=== PATIENT | male | born 1940 | race Hispanic/Latino ===

== ENCOUNTER 2017-03-16 06:22 | Inpatient (IN) | payer MEDICARE, BC ==
[2017-03-16] MEDS ORDERED: Iodixanol 320 MG/ML 200 ML BOTTLE IV ONE (06:43)
[2017-03-16] MEDS ORDERED: Iodixanol 320 MG/ML 100 ML BOTTLE IV ONE (06:43)
[2017-03-16] MEDS ORDERED: Lidocaine 2% Inj (20ml) ONE (06:43)
[2017-03-16] MEDS ORDERED: Nitroglycerin 50mg in D5W 50 MG/250 ML BOTTLE IV ONE (06:43)
[2017-03-16 07:02] LABS: BASO # 0.06 K/mm3 (0.0-2.0); BASO % 0.9 % (0.0-3.0); EOS # 0.2 (0.0-0.7); EOS % 3.5 % (1.5-5.0); GRAN # 3.88 (1.4-6.5); LYMPH # 1.7 (1.2-3.4); LYMPH % 26.4 % (22.0-35.0); MEAN CELL VOLUME 90.3 fl (80.0-105.0); MEAN CORPUSCULAR HEMOGLOBIN 30.8 pg (25.0-35.0); MONO # 0.5 (0.1-0.6); MONO % 8.2 % (1.0-6.0); RED CELL DISTRIBUTION WIDTH 13.2 % (11.5-14.5); WHITE BLOOD COUNT 6.4 10^3/ul (4.5-11.0)
[2017-03-16] MEDS ORDERED: Midazolam 2 MG/2 ML VIAL ONE ×3 (07:07→09:06)
[2017-03-16 07:12] LABS: BLOOD UREA NITROGEN 24 mg/dL (7-21); CALCIUM 9.6 mg/dL (8.4-10.5); CARBON DIOXIDE 26 mmol/L (21-33); CHLORIDE 103 mmol/L (98-107); GFR AFRICAN-AMERICAN > 60; GLUCOSE,RANDOM 162 mg/dL (70-110); POTASSIUM 4.7 mmol/L (3.6-5.0); SODIUM 142 mmol/L (132-148)
[2017-03-16 07:41] LABS: INR 0.99 (0.93-1.08); PARTIAL THROMBOPLASTIN TIME 26.1 Seconds (23.7-30.8)
--- NOTE | 2017-03-16 11:49 | VASCULAR ---
PROCEDURE: 1. Abdominal aortogram and bilateral lower extremity runoff with left selective views. 2. Left SFA silver Hawk atherectomy and drug-eluting balloon angioplasty HISTORY: Severe peripheral vascular disease. Diabetes. Ex-smoker. Previous right femoral-popliteal bypass. Previous left SFA angioplasty and stent placement. Recurrent short distance claudication. Left SFA occlusion. PHYSICIAN(S): Neptali Sibley M.D. TECHNIQUE: The relative risks and indications of the procedure were explained to the patient and consent obtained. The patient was hydrated prior to the procedure and the appropriate labs drawn. The patient was placed supine on the arteriogram table and the right groin prepped and draped in the usual sterile fashion. Conscious sedation and monitoring were provided throughout the procedure by a nurse. Via a right common femoral artery approach, a 5 Bulgarian sheath was placed in the right groin. Through the sheath and over a guidewire, a 5 Bulgarian flush catheter was placed in the abdominal aorta at the level of the renal arteries and a PA DSA abdominal aortogram performed. The catheter was pulled down to the aortic bifurcation and bilateral oblique DSA pelvic arteriograms performed. Overlapping bilateral lower extremity DSA arteriograms were obtained from the inguinal ligaments to the ankles. A 0.035 angled Glidewire was advanced over the bifurcation and placed in the mid left SFA. A 7 Bulgarian 65 cm destination sheath was placed in the proximal left SFA. Heparin 5000 units IV and nitroglycerin in 250 mcg aliquots were given. The occluded stent in the mid left SFA was crossed rather easily with a 5 Bulgarian catheter and angled Glidewire. Exchange was made for a 0.014 support guidewire. Silver Hawk atherectomy of the mid left SFA and occluded stent was performed with a Hawk 1 catheter approximately 8 passes were performed. Antegrade flow was re-established with a suboptimal result. The mid left SFA was then dilated with a 6 mm by 15 cm drug-eluting balloon. An excellent angiographic result was obtained. No stent was required. Completion angiograms were performed. Sheath was removed hemostasis obtained. The patient tolerated the procedure well FINDINGS: There are single renal arteries bilaterally which are widely patent and normal in appearance. The nephrograms are symmetric in appearance. The infrarenal abdominal aorta is smoothly calcified and widely patent. The aortic bifurcation is widely patent. The common iliac arteries are calcified but patent. The right internal iliac artery is occluded. The left internal iliac artery is patent. Right lower extremity: The right common femoral artery is patent. The right profunda femoral artery is diseased but patent.. The right superficial femoral artery is chronically occluded.. There is a right femoral - above knee popliteal vein bypass. There is a severe 2-3 cm stenosis of the proximal anastomosis. This previously underwent angioplasty. The remainder of the graft is patent. The Distal anastomosis is patent. The right popliteal artery is patent and continuous. There is 2 vessel tibial runoff via the right anterior tibial and peroneal arteries. The right posterior tibial artery is occluded proximally Left lower extremity: Left common femoral artery is patent. The left profunda femoral artery is hypertrophied. The left superficial femoral artery demonstrates an 8 cm occlusion of its mid segment with a self expanding stent. The left popliteal artery is patent. There is 2 vessel tibial runoff on the left via the anterior tibial and peroneal arteries. IMPRESSION: 1.8 cm occlusion of the mid left SFA with a self expanding stent. 2. Successful recanalization in the mid left SFA with silver Hawk atherectomy and drug-eluting balloon angioplasty. 3. Severe stenosis of the proximal anastomosis of the patient's right femoral-popliteal vein bypass 4. Mild bilateral tibial occlusive disease.
[2017-03-16] MEDS ORDERED: Morphine 2 mg/ml ISec ONE (14:07)
[2017-03-16] MEDS ORDERED: Sodium Chloride 0.9% 500 ML IV STA (14:26)
[2017-03-16 14:44] LABS: MEAN CELL VOLUME 90.7 fl (80.0-105.0); MEAN CORPUSCULAR HEMOGLOBIN 30.3 pg (25.0-35.0); MEAN CORPUSCULAR HGB CONC 33.4 g/dl (31.0-37.0); MEAN PLATELET VOLUME 11.4 fl (7.0-11.0); RED CELL DISTRIBUTION WIDTH 13.3 % (11.5-14.5); WHITE BLOOD COUNT 8.3 10^3/ul (4.5-11.0)
[2017-03-16 14:55] LABS: INR 1.05 (0.93-1.08); PARTIAL THROMBOPLASTIN TIME 23.4 Seconds (23.7-30.8)
[2017-03-16 15:08] LABS: TROPONIN I < 0.01 ng/mL
--- NOTE | 2017-03-16 15:21 | PCM.RRT ---
<SADIE PELAEZ - Last Filed: 03/16/17 15:16> FOOD SUPERVISOR Nurse Assessment - Situation Date: 03/16/17 Time FOOD SUPERVISOR was called: 14:19 FOOD SUPERVISOR Responder Arrival Time: 14:24 FOOD SUPERVISOR Location:: Same Day Surgery Room Number: cubicle 10 FOOD SUPERVISOR Reason for Call: Hypotension, Looks Sicker FOOD SUPERVISOR Called By: RN - IV IV Inserted during FOOD SUPERVISOR?: Yes IV Fluids Initiated During FOOD SUPERVISOR?: 750cc ns bolus - Respiratory Oxygen Delivery Method: Nasal Cannula @L/min Oxygen Flow Rate: 2 Received Nebulizer Treatments:: No Was the Patient Ventilated with Bag/Mask 100% O2?: No Secretions Suctioned?: No Was the Patient Intubated?: No Was the Patient Placed on a Ventilator?: No - Medication Medications Administered During FOOD SUPERVISOR: none - Diagnostic Test Ordered EKG: Yes Chest X-Ray: No CT Scan: No - Stat Labs Ordered FOOD SUPERVISOR Stat Labs Ordered: CBC, BMP, PT/PTT FOOD SUPERVISOR Other Labs Ordered: type and crossmatch CPR started during FOOD SUPERVISOR?: No - Vital Signs Vital Sign: Rapid Response Vital Sign Blood Pressure 83/60 Pulse Rate 62 Respiratory Rate 16 Oxygen Saturation 99 - Finger Stick Blood Glucose Finger Stick Blood Glucose: 176 - Time FOOD SUPERVISOR Ended Time FOOD SUPERVISOR Ended: 14:45 - Vital Signs at end of FOOD SUPERVISOR Vital Signs at end of FOOD SUPERVISOR: Rapid Response End Vital Sign Blood Pressure 123/76 Pulse Rate 70 Respiratory Rate 20 O2 Sat by Pulse Oximetry 95 - Recommendations 5) FOOD SUPERVISOR Level of Care Recommendations: Transfer to ICU Notifications: Attending Physician, Family or Designated Caregiver I.Reason for FOOD SUPERVISOR - A) Acute Change in Patient: Subjective: Pt is a 76 yo male with pmhx with CAD with stents, PVD s/p bypass and stents of b/l extremities whom presented to [facility] angiogram of . Post procedure pt complained of RLQ abdominal pain. Was given 2 mg of morphine apon examination of the nurses pt was noted to have a lump in the RLQ, suspicious for internal bleed. Pressure was held and FOOD SUPERVISOR was called due to hypotension. On arrival systolic BP was in the 80s. Pt was given 500 cc NS bolus and right lower inguinal pressure was applied. Dr. Neptali Sibley arrived at bedside, recommended pt be transferred to ICU for monitoring. CBC, type and cross 4 units, PT/PTT were all sent. BP improved with systolic BP in the 100s. Pt's primary care doctor was contacted and agreed with admission to ICU. Pt's daughter was also contacted. Dr. Raymond Roy and Dr. Selin Amador were at bedside. - Neurological Status (Select all that apply): Alert, Responsive, Oriented, Verbal, Follows Commands - Respiratory Oxygen Delivery Method: Room Air Oxygen Flow Rate: 0 - Constitutional Appears: No Acute Distress, Chronically Ill - Head Head Exam: ATRAUMATIC, NORMAL INSPECTION, NORMOCEPHALIC - Eyes Eye Exam: EOMI, Normal appearance, PERRL. absent: Scleral icterus - Respiratory Exam Respiratory Exam: Clear to Ausculation Bilateral, NORMAL BREATHING PATTERN. absent: Decreased Breath Sounds, Rales, Rhonchi, Wheezes, Respiratory Distress, Stridor - Cardiovascular Exam Cardiovascular Exam: Bradycardia, REGULAR RHYTHM, RRR, +S1, +S2. absent: JVD, Rubs, Murmur - GI/Abdominal Exam GI & Abdominal Exam: Distended, Rigid, Tenderness (RLQ), Normal Bowel Sounds, Organomegaly (RLQ, palpable liver edge). absent: Firm, Guarding - Neurological Exam Neurological Exam: Alert, Awake, Oriented x3 - Extremities Exam Extremities Exam: Normal Capillary Refill. absent: Pedal Edema Plan - Assessment of Findings&Treatment Plan 76 yo M status post angiography of LE's developed RLQ abdominal pain suspicious for intrabdominal bleed and hypotension. S/p pressure dressing by Dr. Neptali Sibley. 1. Transfer to ICU for further monitoring 2. F/u CBC, type and cross, coags, EKG, cardiac enzymes 3. As per Dr. Neptali Sibley, if pt continues to bleed will obtain CT abdomen and pelvis 4. Dr. Coto was notified and will accept pt to his service 5. Pt seen and examined and discussed with attending <Selin Amador B - Last Filed: 03/16/17 16:07> FOOD SUPERVISOR Nurse Assessment - Vital Signs Vital Sign: Rapid Response Vital Sign Blood Pressure 83/60 Pulse Rate 62 Respiratory Rate 16 Oxygen Saturation 99 - Vital Signs at end of FOOD SUPERVISOR Vital Signs at end of FOOD SUPERVISOR: Rapid Response End Vital Sign Blood Pressure 123/76 Pulse Rate 70 Respiratory Rate 20 O2 Sat by Pulse Oximetry 95 Attending/Attestation - Attestation I have personally seen and examined this patient.: Yes I have fully participated in the care of the patient.: Yes I have reviewed all pertinent clinical information, including history, physical exam and plan: Yes
[2017-03-16 16:41] LABS: BASO # 0.03 K/mm3 (0.0-2.0); BASO % 0.3 % (0.0-3.0); EOS # 0.1 (0.0-0.7); EOS % 0.7 % (1.5-5.0); GRAN # 7.93 (1.4-6.5); GRAN % 84.7 % (50.0-68.0); HEMATOCRIT 33.1 % (42.0-52.0); LYMPH # 0.7 (1.2-3.4); LYMPH % 7.7 % (22.0-35.0); MEAN CELL VOLUME 90.2 fl (80.0-105.0); MEAN CORPUSCULAR HEMOGLOBIN 30.2 pg (25.0-35.0); MEAN CORPUSCULAR HGB CONC 33.5 g/dl (31.0-37.0); MEAN PLATELET VOLUME 11.6 fl (7.0-11.0); MONO # 0.6 (0.1-0.6); MONO % 6.6 % (1.0-6.0); RED CELL DISTRIBUTION WIDTH 13.2 % (11.5-14.5); WHITE BLOOD COUNT 9.4 10^3/ul (4.5-11.0)
--- NOTE | 2017-03-16 16:46 | CP.PCM.CON ---
<Schuyler Dong - Last Filed: 03/16/17 16:26> History of Present Illness - History of Present Illness History of Present Illness: ICU Consult Note for Dr. Haskins CC: Rapid response post R-leg angiogram, possible Retroperitoneal bleed HPI: This is a 76 yo M with PMH of CAD s/p stenting x3, HTN, HLD, NIDDM, Gout, BPH, RLE Fem-pop bypass with SFA stent, and PVD with exercise-induced claudication who presents s/p Rapid Response. Patient was in same day surgery, s/p R-leg angiogram, resting comfortably. Approximately 6 hours post procedure , he developed some RLQ abd pain, for which he was given morphine, but obtained no relief. On re-examination by same-day surgery staff, patient was ill- appearing, in moderate distress from pain, and had a palpable mass at the RLQ. Blood pressure was obtained at that time, and systolic was reported to be in the 70's, so a rapid response was called (please see VEHICLE COST ENGINEER note for additional details). Pressures improved to 90's-110's after 500cc bolus with pressure bag , and the patient remained awake, alert, and oriented, so pressure bandaging was applied, and patient was transferred to ICU as per IR. At time of exam, patient reports only general discomfort at region of R-groin 2/2 pressure bandage, but denies any syncope, near-syncope, room spinning, chest pain, shortness of breath, nausea/emesis, focal weakness, fevers/chills, or acute changes in vision. Admits to intermittent tingling in bilateral feet, longstanding diabetic neuropathy as per patient and family at bedside, and intermittent dizziness/near-syncopal at home (3 episodes total) when moving from sitting to standing. Admits to a measured hypotensive episode at home (70' s-80's systolic at home) 3 days prior. All other ROS negative in 12-point system review. PMH: as above PSH: RLE Fem-pop bypass with SFA stenting, Cardiac stenting 2014 SHx: former tobacco user (cigarettes, 2 ppd > 20 yrs, quit > 30 yrs prior), admits social EtOH, denies illicits/IVDA FHx: NC (Father) PMD: Dr. Coto Review of Systems - Review of Systems All systems: reviewed and no additional remarkable complaints except (as per HPI ) Past Patient History - Infectious Disease Hx of Infectious Diseases: None - Past Social History Smoking Status: Former Smoker - CARDIAC Hx Pacemaker: No - PULMONARY Hx Respiratory Disorders: No - NEUROLOGICAL Hx Paralysis: No - HEENT Hx HEENT Problems: (WEARS GLASSES) - RENAL Hx Chronic Kidney Disease: No - ENDOCRINE/METABOLIC Hx Endocrine Disorders: Yes Hx Diabetes Mellitus Type 1: Yes Hx Diabetes Mellitus Type 2: Yes (NIDDM) - HEMATOLOGICAL/ONCOLOGICAL Hx Blood Transfusions: No - INTEGUMENTARY Hx Dermatological Problems: No - MUSCULOSKELETAL/RHEUMATOLOGICAL Hx Musculoskeletal Disorders: Yes - GASTROINTESTINAL Hx Gastrointestinal Disorders: No - GENITOURINARY/GYNECOLOGICAL Hx Genitourinary Disorders: Yes (frequency) Hx Prostate Problems: Yes (ENLARGED PROSTATE) - PSYCHIATRIC Hx Emotional Abuse: No Hx Physical Abuse: No Hx Substance Use: No - SURGICAL HISTORY Hx Surgeries: Yes - ANESTHESIA Hx Anesthesia Reactions: No Meds Allergies/Adverse Reactions: Allergies Allergy/AdvReac Type Severity Reaction Status Date / Time No Known Allergies Allergy Verified 03/06/15 10:52 - Medications Medications: Current Medications Acetaminophen (Tylenol 325mg Tab) 650 mg PO Q4H PRN PRN Reason: Pain, Mild (1-3) Sodium Chloride (Sodium Chloride 0.45%) 1,000 mls @ 80 mls/hr IV .[id number] CAROLYN Ondansetron HCl (Zofran Inj) 4 mg IVP ONCE PRN PRN Reason: Nausea/Vomiting Oxycodone/Acetaminophen (Percocet 5/325 Mg Tab) 1 tab PO Q4H PRN PRN Reason: Pain, moderate (4-7) Stop: 03/19/17 09:56 Physical Exam - Constitutional Appears: Well, Non-toxic, No Acute Distress (at time of exam in ICU), In Acute Distress (at time of rapid) - Head Exam Head Exam: ATRAUMATIC, NORMAL INSPECTION, NORMOCEPHALIC - Eye Exam Eye Exam: EOMI, Normal appearance, PERRL. absent: Conjunctival injection, Scleral icterus Pupil Exam: NORMAL ACCOMODATION, PERRL. absent: Fixed, Irregular, Unequal - ENT Exam ENT Exam: Mucous Membranes Moist, Normal Exam - Neck Exam Neck exam: Positive for: Full Rom - Respiratory Exam Respiratory Exam: Decreased Breath Sounds (mildly decreased breath sounds in all benítez), Clear to Auscultation Bilateral, NORMAL BREATHING PATTERN. absent : Accessory Muscle Use, Chest Wall Tenderness, Prolonged Expiratory Phase, Rales , Rhonchi, Wheezes - Cardiovascular Exam Cardiovascular Exam: REGULAR RHYTHM, RRR, +S1, +S2. absent: Bradycardia, Tachycardia, Irregular Rhythm, JVD, +S4 - GI/Abdominal Exam GI & Abdominal Exam: Normal Bowel Sounds, Soft. absent: Diminished Bowel Sounds , Distended, Firm, Tenderness - Extremities Exam Extremities exam: Positive for: calf tenderness (mild calf tenderness superior to R heel), pedal pulses present (weakly palpable distal pulses, confirmed with Duplex prior to placement of RLE pressure bandage). Negative for: joint swelling, pedal edema Additional comments: R-femoral canulation site at R groin, pressure bandaging in place, no actively oozing at time of Rapid prior to pressure bandage placement - Neurological Exam Neurological exam: Alert, CN II-XII Intact, Oriented x3 - Psychiatric Exam Psychiatric exam: Normal Affect, Normal Mood - Skin Skin Exam: Dry, Intact (except as documented in Extremities exam), Normal Color , Warm Results - Vital Signs Recent Vital Signs: Last Vital Signs Temp 97 F L 03/16/17 14:00 Pulse 58 L 03/16/17 14:00 Resp 20 03/16/17 14:00 BP 119/81 03/16/17 14:00 Pulse Ox 99 03/16/17 14:00 - Labs Result Diagrams: 03/16/17 14:30 03/16/17 06:56 Labs: Laboratory Results - last 24 hr 03/16/17 03/16/17 03/16/17 06:56 06:56 06:56 WBC 6.4 D RBC 4.65 Hgb 14.3 Hct 42.0 MCV 90.3 MCH 30.8 MCHC 34.0 RDW 13.2 Plt Count 136 MPV 12.0 H Gran % 61.0 Lymph % (Auto) 26.4 [place] % (Auto) 8.2 H Eos % (Auto) 3.5 Baso % (Auto) 0.9 Gran # 3.88 Lymph # 1.7 Morehouse # 0.5 Eos # 0.2 Baso # 0.06 PT 10.7 INR 0.99 APTT 26.1 Sodium 142 Potassium 4.7 Chloride 103 Carbon Dioxide 26 Anion Gap 18 BUN 24 H Creatinine 1.2 Est GFR ( Amer) > 60 Est GFR (Non-Af Amer) 59 POC Glucose (mg/dL) Random Glucose 162 H Calcium 9.6 Lactate Dehydrogenase Total Creatine Kinase Troponin I Blood Type Antibody Screen Crossmatch BBK History Checked 03/16/17 03/16/17 03/16/17 14:23 14:30 14:30 WBC 8.3 D RBC 3.86 Hgb 11.7 L D Hct 35.0 L MCV 90.7 MCH 30.3 MCHC 33.4 RDW 13.3 Plt Count 136 MPV 11.4 H Gran % Lymph % (Auto) [place] % (Auto) Eos % (Auto) Baso % (Auto) Gran # Lymph # [place] # Eos # Baso # PT INR APTT Sodium Potassium Chloride Carbon Dioxide Anion Gap BUN Creatinine Est GFR ( Amer) Est GFR (Non-Af Amer) POC Glucose (mg/dL) 176 H Random Glucose Calcium Lactate Dehydrogenase 284 L Total Creatine Kinase 88 Troponin I < 0.01 Blood Type Antibody Screen Crossmatch BBK History Checked 03/16/17 03/16/17 14:30 14:30 WBC RBC Hgb Hct MCV MCH MCHC RDW Plt Count MPV Gran % Lymph % (Auto) [place] % (Auto) Eos % (Auto) Baso % (Auto) Gran # Lymph # [place] # Eos # Baso # PT 11.3 INR 1.05 APTT 23.4 L Sodium Potassium Chloride Carbon Dioxide Anion Gap BUN Creatinine Est GFR ( Amer) Est GFR (Non-Af Amer) POC Glucose (mg/dL) Random Glucose Calcium Lactate Dehydrogenase Total Creatine Kinase Troponin I Blood Type O NEGATIVE Antibody Screen Negative Crossmatch See Detail BBK History Checked Patient has bt Assessment & Plan - Assessment and Plan (Free Text) Assessment: his is a 76 yo M with PMH of CAD s/p stenting x3, HTN, HLD, NIDDM, Gout, BPH, RLE Fem-pop bypass with SFA stent, and PVD with exercise-induced claudication who presents s/p Rapid Response with concern for post-angiogram retro- peritoneal bleed. He was admitted to the ICU for close monitoring. Plan: Neuro: -awake and alert, oriented -maintain normothermia Pulm: -CTAB, satting well on 2L NC -maintain SaO2 > 92% Cardio: -currently hemodynamically stable, BP 110's-120s on bedside monitor at time of exam -70's-80s SBP on bedside monitor at time of Rapid, resolved, continue to monitor -Hypotensive episode 2/2 retroperitoneal bleed vs vasovagal -1/2 NS at 80cc/hr -Hgb post procedure 11.7 (14.3 pre-procedure), CBC q4 to assess for acute drops in Hgb -If becomes HD unstable or demonstrates acute decreases in Hgb, can consider CT angio to assess for bleed -Trop x1 negative -Peripheral pulses intact, confirmed with duplex, continue pulse checks q4 -Hold home ASA/Plaivx and Antihypertensives overnight, reassess in AM GI: -Consistent carb diet -Avoid Protonix ppx for now due to concern for bleed, can start on Protonix tomorrow if no bleeding from canulation site Renal: -Cr 1.2, BUN 24 on admission labs, however NPO pre-procedure so may be mildly dehydrated -Maintain Euvolemia and Euglycemia (BG 140-180) -Avoid nephrotoxic drugs as feasible -Monitor and replete electrolytes as needed Heme: -Coags obtained, INR 1.05, will recheck on AM -Avoid AC in setting of possible bleed -Hgb 11.7, 14.3 pre-procedure but NPO so likely hemoconcentrated, less likely decrease from acute ID: -WBC 8.3, afebrile -no indication for antibiotics at this time Endo: -hold home oral hypoglycemics in favor of sliding scale, Fingersticks ACHS Dispo: ICU s/p rapid for hypotensive episode post-procedure, possible retroperitoneal hemorrhage FEN: Consistent carb, 1/s NS 80cc/hr Access: Peripheral IV Consults: ICU Ppx: Avoid AC in setting of possible bleed, avoid SCD due to LE bleed, avoid Protonix due to post-angiogram bleed Code Status: Full Patient seen, examined, and reviewed with attending, Dr. Haskins. <Juan José Haskins - Last Filed: 03/16/17 17:50> Meds - Medications Medications: Current Medications Acetaminophen (Tylenol 325mg Tab) 650 mg PO Q4H PRN PRN Reason: Pain, Mild (1-3) Allopurinol (Zyloprim) 300 mg PO DAILY CAROLYN Atorvastatin Calcium (Lipitor) 10 mg PO DIN CAROLYN Finasteride (Proscar) 5 mg PO DAILY [facility] Sodium Chloride (Sodium Chloride 0.45%) 1,000 mls @ 80 mls/hr IV .[id number] [facility] Insulin Human Lispro (Humalog Low) 0 units SC ACHS CAROLYN PRN Reason: Protocol Ondansetron HCl (Zofran Inj) 4 mg IVP ONCE PRN PRN Reason: Nausea/Vomiting Oxycodone/Acetaminophen (Percocet 5/325 Mg Tab) 1 tab PO Q4H PRN PRN Reason: Pain, moderate (4-7) Stop: 03/19/17 09:56 Tamsulosin HCl (Flomax) 0.4 mg PO DAILY [facility] Results - Vital Signs Recent Vital Signs: Last Vital Signs Temp 97 F L 03/16/17 14:00 Pulse 58 L 03/16/17 14:00 Resp 20 03/16/17 14:00 BP 119/81 03/16/17 14:00 Pulse Ox 99 03/16/17 14:00 - Labs Result Diagrams: 03/16/17 16:37 03/16/17 06:56 Labs: Laboratory Results - last 24 hr 03/16/17 03/16/17 03/16/17 06:56 06:56 06:56 WBC 6.4 D RBC 4.65 Hgb 14.3 Hct 42.0 MCV 90.3 MCH 30.8 MCHC 34.0 RDW 13.2 Plt Count 136 MPV 12.0 H Gran % 61.0 Lymph % (Auto) 26.4 [place] % (Auto) 8.2 H Eos % (Auto) 3.5 Baso % (Auto) 0.9 Gran # 3.88 Lymph # 1.7 [place] # 0.5 Eos # 0.2 Baso # 0.06 PT 10.7 INR 0.99 APTT 26.1 Sodium 142 Potassium 4.7 Chloride 103 Carbon Dioxide 26 Anion Gap 18 BUN 24 H Creatinine 1.2 Est GFR ( Amer) > 60 Est GFR (Non-Af Amer) 59 POC Glucose (mg/dL) Random Glucose 162 H Calcium 9.6 Lactate Dehydrogenase Total Creatine Kinase Troponin I Blood Type Antibody Screen Crossmatch BBK History Checked 03/16/17 03/16/17 03/16/17 14:23 14:30 14:30 WBC 8.3 D RBC 3.86 Hgb 11.7 L D Hct 35.0 L MCV 90.7 MCH 30.3 MCHC 33.4 RDW 13.3 Plt Count 136 MPV 11.4 H Gran % Lymph % (Auto) [place] % (Auto) Eos % (Auto) Baso % (Auto) Gran # Lymph # [place] # Eos # Baso # PT INR APTT Sodium Potassium Chloride Carbon Dioxide Anion Gap BUN Creatinine Est GFR ( Amer) Est GFR (Non-Af Amer) POC Glucose (mg/dL) 176 H Random Glucose Calcium Lactate Dehydrogenase 284 L Total Creatine Kinase 88 Troponin I < 0.01 Blood Type Antibody Screen Crossmatch BBK History Checked 03/16/17 03/16/17 03/16/17 14:30 14:30 16:37 WBC 9.4 RBC 3.67 Hgb 11.1 L Hct 33.1 L MCV 90.2 MCH 30.2 MCHC 33.5 RDW 13.2 Plt Count 112 L MPV 11.6 H Gran % 84.7 H Lymph % (Auto) 7.7 L [place] % (Auto) 6.6 H Eos % (Auto) 0.7 L Baso % (Auto) 0.3 Gran # 7.93 H Lymph # 0.7 L [place] # 0.6 Eos # 0.1 Baso # 0.03 PT 11.3 INR 1.05 APTT 23.4 L Sodium Potassium Chloride Carbon Dioxide Anion Gap BUN Creatinine Est GFR ( Amer) Est GFR (Non-Af Amer) POC Glucose (mg/dL) Random Glucose Calcium Lactate Dehydrogenase Total Creatine Kinase Troponin I Blood Type O NEGATIVE Antibody Screen Negative Crossmatch See Detail BBK History Checked Patient has bt Attending/Attestation - Attestation I have personally seen and examined this patient.: Yes I have fully participated in the care of the patient.: Yes I have reviewed all pertinent clinical information: Yes Notes (Text): 03/16/17 17:46 76 yo male with PVD, CAD, s/p Left (not right as in resident note) angioplasty with stent in SFA, who presented to ICU after brisk bleeding in the right groin area where needle insertion for the procedure was made. short lived and transient hypotension resolved with small IVF bolus. Patient hemodynamically and respiratory rivero stable at present time. Easily dopplerable pulse on L.DPA and duller but still dopplerable pulse on R. DPA. Both feet warm, without paresthesia, pain or neurodeficit. Will continue vascular and neuro checks q2-4 hrs, serial Hb, IVF, holding antiplatelets for today. Pressure gauze in the right groin. Bed rest for today.
[2017-03-16] MEDS: Oxycodone/Acetaminophen 5/325 mg Tab PO PRN (19:27)
[2017-03-16 20:39] LABS: BASO # 0.02 K/mm3 (0.0-2.0); BASO % 0.2 % (0.0-3.0); EOS # 0.1 (0.0-0.7); EOS % 0.8 % (1.5-5.0); GRAN # 7.14 (1.4-6.5); GRAN % 81.6 % (50.0-68.0); HEMATOCRIT 32.2 % (42.0-52.0); LYMPH # 1.1 (1.2-3.4); MEAN CELL VOLUME 90.2 fl (80.0-105.0); MEAN CORPUSCULAR HEMOGLOBIN 30.8 pg (25.0-35.0); MEAN CORPUSCULAR HGB CONC 34.2 g/dl (31.0-37.0); MEAN PLATELET VOLUME 11.4 fl (7.0-11.0); MONO # 0.5 (0.1-0.6); MONO % 5.4 % (1.0-6.0); RED CELL DISTRIBUTION WIDTH 13.1 % (11.5-14.5); WHITE BLOOD COUNT 8.8 10^3/ul (4.5-11.0)
[2017-03-16] MEDS: Insulin Lispro (humaLOG) LOW Coverage SC SCH (22:34)
[2017-03-16] MEDS: Sodium Chloride 0.45% 1,000 ML IV SCH (22:40)
[2017-03-17 00:57] LABS: BASO # 0.05 K/mm3 (0.0-2.0); BASO % 0.7 % (0.0-3.0); EOS # 0.2 (0.0-0.7); EOS % 2.4 % (1.5-5.0); GRAN # 4.99 (1.4-6.5); GRAN % 69.7 % (50.0-68.0); HEMATOCRIT 31.4 % (42.0-52.0); LYMPH # 1.3 (1.2-3.4); LYMPH % 18.3 % (22.0-35.0); MEAN CELL VOLUME 90.8 fl (80.0-105.0); MEAN CORPUSCULAR HEMOGLOBIN 30.6 pg (25.0-35.0); MEAN CORPUSCULAR HGB CONC 33.8 g/dl (31.0-37.0); MEAN PLATELET VOLUME 11.8 fl (7.0-11.0); MONO # 0.6 (0.1-0.6); MONO % 8.9 % (1.0-6.0); RED CELL DISTRIBUTION WIDTH 13.3 % (11.5-14.5); WHITE BLOOD COUNT 7.2 10^3/ul (4.5-11.0)
[2017-03-17 05:57] LABS: BASO # 0.02 K/mm3 (0.0-2.0); BASO % 0.3 % (0.0-3.0); EOS # 0.2 (0.0-0.7); EOS % 2.3 % (1.5-5.0); GRAN # 5.04 (1.4-6.5); GRAN % 71.8 % (50.0-68.0); LYMPH # 1.1 (1.2-3.4); LYMPH % 15.2 % (22.0-35.0); MEAN CELL VOLUME 91.2 fl (80.0-105.0); MEAN CORPUSCULAR HEMOGLOBIN 30.8 pg (25.0-35.0); MEAN CORPUSCULAR HGB CONC 33.8 g/dl (31.0-37.0); MONO # 0.7 (0.1-0.6); MONO % 10.4 % (1.0-6.0); RED CELL DISTRIBUTION WIDTH 13.3 % (11.5-14.5)
[2017-03-17 06:01] LABS: INR 1.02 (0.93-1.08); PARTIAL THROMBOPLASTIN TIME 24.7 Seconds (23.7-30.8)
[2017-03-17 06:33] LABS: ALB/GLOB RATIO 1.4 (1.1-1.8); ALKALINE PHOSPHATASE 36 U/L (38-126); ALT/SGPT 31 U/L (7-56); AST/SGOT 20 U/L (17-59); BILIRUBIN,TOTAL 0.7 mg/dL (0.2-1.3); BLOOD UREA NITROGEN 18 mg/dL (7-21); CALCIUM 8.3 mg/dL (8.4-10.5); CARBON DIOXIDE 26 mmol/L (21-33); CHLORIDE 105 mmol/L (98-107); GFR AFRICAN-AMERICAN > 60; GLUCOSE,RANDOM 149 mg/dL (70-110); MAGNESIUM 1.4 mg/dL (1.7-2.2); PHOSPHOROUS 3.2 mg/dL (2.5-4.5); POTASSIUM 4.3 mmol/L (3.6-5.0); SODIUM 138 mmol/L (132-148); TOTAL PROTEIN 5.9 g/dL (5.8-8.3)
--- NOTE | 2017-03-17 07:12 | CT ---
EXAM: CT Abdomen and Pelvis Without Intravenous Contrast EXAM DATE/TIME: 03/16/2017 2:26 PM CLINICAL HISTORY: 76 years old, male; Signs and symptoms; Other: Acute bleed TECHNIQUE: Axial computed tomography images of the abdomen and pelvis without intravenous contrast. All CT scans at this facility use one or more dose reduction techniques, viz.: automated exposure control; ma/kV adjustment per patient size (including targeted exams where dose is matched to indication; i.e. head); or iterative reconstruction technique. Coronal and sagittal reformatted images were created and reviewed. COMPARISON: No relevant prior studies available. FINDINGS: LOWER THORAX: No infiltrate seen in the lung bases. ABDOMEN: LIVER: No acute abnormality of the liver identified. GALLBLADDER AND BILE DUCTS: Very high density material in the gallbladder, most compatible with vicariously excreted IV contrast. No CT evidence of acute cholecystitis. PANCREAS: No CT evidence of acute pancreatitis. SPLEEN: No acute abnormality of the spleen identified. ADRENALS: No acute abnormality of the adrenal glands identified. KIDNEYS AND URETERS: Bilateral persistent nephrograms. Moderate bilateral perinephric stranding and fluid. No evidence of significant perinephric hematoma. No evidence of hydroureteronephrosis. STOMACH AND BOWEL: Extensive colonic diverticulosis, without evidence of acute diverticulitis. Otherwise, no significant abnormality of the bowel is identified. No acute abnormality of the stomach or duodenum identified. No evidence of bowel obstruction. APPENDIX: Appendix is seen, and is within normal limits in appearance. PELVIS: BLADDER: Catheter and air noted within the bladder lumen. REPRODUCTIVE: No acute abnormality of the reproductive organs is seen. ABDOMEN and PELVIS: INTRAPERITONEAL SPACE: Small amount of pelvic free fluid. No evidence of free air. RETROPERITONEAL SPACE: Acute right-sided retroperitoneal hemorrhage. A moderate to large amount of diffuse hemorrhage is seen, centered in in the right pelvic retroperitoneal space, and extending superiorly, into the right lower abdomen. The hemorrhage has a craniocaudal extent of about 20 cm, and is greatest in the right pelvis anterolaterally. There is no definite focal, measurable hematoma seen. The hemorrhage is located jennifer-laterally, posterior and lateral to the ascending colon and right kidney but not abutting these were constructed. BONES/JOINTS: No acute fractures or other acute bony abnormality noted. SOFT TISSUES: Subcutaneous hemorrhage in the right anterior pelvic wall and right groin soft tissues, diffuse in nature, with no evidence of a measurable hematoma. Small focus of soft tissue air is also seen. VASCULATURE: Atherosclerotic calcification. No evidence of periaortic hemorrhage. LYMPH NODES: No evidence of diffuse lymphadenopathy. IMPRESSION: - Acute right retroperitoneal hemorrhage. A moderate to large amount of hemorrhage is seen, greatest in the right pelvis anterolaterally, and extending superiorly into the right lower abdomen. - Bilateral persistent nephrograms, suspicious for acute tubular necrosis. Contrast nephropathy is not excluded. - Diffuse subcutaneous hemorrhage in the right anterior pelvic wall and groin soft tissues. - See above for remaining findings.
[2017-03-17] MEDS: Insulin Lispro (humaLOG) LOW Coverage SC SCH ×4 (08:04→22:00)
[2017-03-17] MEDS: Magnesium Sulfate 2 GM in Sodium Chloride 0.9% 100 ML IVPB SCH ×2 (08:41→10:45)
--- NOTE | 2017-03-17 09:50 | CP.CCUPN ---
<Schuyler Dong - Last Filed: 03/17/17 10:45> CCU Subjective - Physician Review Subjective (Free Text): 03/17/17 09:47 Patient seen and examined at bedside in the ICU. No acute events reported overnight. Repeat CBCs showed minor decline in Hgb from 11.7 (post-procedure) to 10.6 (overnight), 10.[address] abd/pelvis obtained as per primary, read as retroperitoneal hemorrhage extending from pelvis to right lower abdomen, moderate to large amount, and possible ATN. Dr. Neptali Sibley made aware, states appears to be more anterior and lateral than retroperitoneal. Recs keeping patient one more day, but if H&H is stable at 1530 recheck, can be transferred to telemetry and be allowed to ambulate out of bed. Patient reports no acute complaints, mild pain on palpation at site of bleed, otherwise no other complaints. Denies chest pain, shortness of breath, nausea, emesis, fevers/ chills, acute vision change, dizziness, room-spinning sensation, or focal weakness. Baseline bilateral foot intermittent tingling 2/2 NIDDM, no acute changes. Critical Care Time Spent (in minutes): 35 CCU Objective - Vital Signs / Intake & Output Vital Signs (Last 4 hours): Vital Signs Temp Pulse Resp BP Pulse Ox 03/17/17 08:00 64 14 104/52 L 97 03/17/17 07:50 66 21 99 03/17/17 07:45 68 17 109/56 L 99 03/17/17 07:40 65 16 98 03/17/17 07:30 63 14 112/49 L 99 03/17/17 07:20 63 16 99 03/17/17 07:15 64 17 106/57 L 98 03/17/17 07:10 65 16 98 03/17/17 07:00 98.3 F 64 14 116/61 99 03/17/17 06:50 66 15 98 03/17/17 06:45 65 15 107/55 L 99 03/17/17 06:40 67 13 100 03/17/17 06:30 66 16 114/59 L 99 03/17/17 06:20 62 17 99 03/17/17 06:15 63 15 114/59 L 99 03/17/17 06:10 65 15 98 09/27/17 06:04 64 17 119/56 L 98 03/17/17 06:01 67 29 H 03/17/17 06:00 64 Intake and Output (Last 8hrs): Intake & Output 03/16/17 03/17/17 03/17/17 22:59 06:59 14:59 Intake Total 2030 960 Output Total 600 1000 Balance 1430 -40 Intake: IV 1550 960 Right Antecubital 1550 Right Hand 960 Oral 480 0 Output: Urine 600 1000 Urethral (Molina) 600 1000 Other: # Bowel Movements 0 - Physical Exam Head: Positive for: Atraumatic, Normocephalic. Negative for: Abrasion, Laceration Pupils: Positive for: PERRL. Negative for: Sluggish, Non-Reactive Extroacular Muscles: Positive for: EOMI. Negative for: Gaze Palsy Conjunctiva: Positive for: Normal. Negative for: Injected, Icteric Mouth: Positive for: Moist Mucous Membranes, Normal Lips, Normal Tounge, Normal Teeth. Negative for: Drooling Pharnyx: Positive for: Normal Nose (External): Positive for: Atraumatic. Negative for: Abrasion, Contusion, Laceration Nose (Internal): Negative for: Epistaxis Neck: Positive for: Normal Range of Motion. Negative for: Meningeal Signs, MIDLINE TENDERNESS, JVD, Lymphadenopathy Respiratory/Chest: Positive for: Clear to Auscultation, Good Air Exchange, Decreased Breath Sounds (mildly decreased breath sounds in all benítez, unchanged from yesterday). Negative for: Respiratory Distress, Accessory Muscle Use, Wheezes, Rales, Retracting, Rhonchi, Tachypneic, Tender to Palpation Cardiovascular: Positive for: Regular Rate and Rhythm, Normal S1, S2, Peripheal Pulses Present (+2 radials bilaterally, unable to palpate dorsalis pedis pulses but clearly auscultated with bedside doppler bilaterally). Negative for: Murmurs, Irregular Rhythm, Tachycardic, Bradycardic Abdomen: Positive for: Tenderness (mild discomfort at baseline, tenderness to anterior palpation only at RLQ), Normal Bowel Sounds, Guarding (mild guarding for any palpation at RLQ). Negative for: Distention, Peritoneal Signs, Mass/ Organomegaly (no palpable mass at site of previously palpated mass in RLQ yesterday, but some guarding) Genitourinary Male: Positive for: Other (Molina in place draining clear yellow urine) Back: Negative for: CVA Tenderness Upper Extremity: Positive for: Normal Inspection, Normal ROM, NORMAL PULSES. Negative for: Cyanosis, Edema, Tenderness, Swelling, Erythema, Neurovascularly Intact, Deformity Lower Extremity: Positive for: NORMAL PULSES (unable to palpate bilateral dorsalis pedis but clearly heard brisk pulse when using bedside doppler), Other (Pressure bandage in place along R groin line, no active bleeding or oozing through bandage). Negative for: Edema, CALF TENDERNESS, Cyanosis, Normal ROM ( intentionally restricted RLE motion, but bilateral foot ROM intact and equal), Tenderness, Swelling, Erythema, Deformity, Temperature Abnormalties Neurological: Positive for: GCS=15, CN II-XII Intact, Speech Normal, Motor Func Grossly Intact (except for RLE restricted motion, as documented in Lower extremity exam), Normal Sensory Function Skin: Positive for: Warm, Dry, Normal Color. Negative for: Rashes, Diaphoretic , Erythematous, Laceration, Abscess, Abrasion Psychiatric: Positive for: Alert, Oriented x 3, Normal Insight, Normal Concentration, Normal Affect, Normal Mood. Negative for: Anxious, Agitated, Depressed Mood - Medications Active Medications: Active Medications Generic Name Dose Route Start Last Admin Trade Name Freq PRN Reason Stop Dose Admin Acetaminophen 650 mg 03/16/17 09:56 Tylenol 325mg Tab PO Q4H PRN Pain, Mild (1-3) Allopurinol 300 mg 03/16/17 17:30 03/17/17 09:12 Zyloprim PO 300 mg DAILY CAROLYN Administration Atorvastatin Calcium 10 mg 03/16/17 17:00 03/16/17 19:26 Lipitor PO 10 mg DIN CAROLYN Administration Finasteride 5 mg 03/16/17 17:30 03/17/17 09:16 Proscar PO 5 mg DAILY CAROLYN Administration Sodium Chloride 1,000 mls @ 80 mls/hr 03/16/17 10:00 03/16/17 22:40 Sodium Chloride 0.45% IV 80 mls/hr .[id number] CAROLYN Administration Magnesium Sulfate 2 gm/ Sodium 104 mls @ 102 mls/hr 03/17/17 07:45 03/17/17 08:41 Chloride IVPB 03/17/17 11:47 102 mls/hr Q3H CAROLYN Administration Insulin Human Lispro 0 units 03/16/17 22:00 03/17/17 08:04 Humalog Low SC 1 units ACHS CAROLYN Administration Protocol Ondansetron HCl 4 mg 03/16/17 09:55 Zofran Inj IVP ONCE PRN Nausea/Vomiting Oxycodone/Acetaminophen 1 tab 03/16/17 09:55 03/16/17 19:27 Percocet 5/325 Mg Tab PO 03/19/17 09:56 1 tab Q4H PRN Administration Pain, moderate (4-7) Tamsulosin HCl 0.4 mg 03/16/17 17:30 03/17/17 09:11 Flomax PO 0.4 mg DAILY CAROLYN Administration - Patient Studies Lab Studies: Lab Studies 03/17/17 03/17/17 03/17/17 Range/Units 07:45 05:30 05:30 WBC (4.5-11.0) 10^3/ul RBC (3.5-6.1) 10^6/uL Hgb (14.0-18.0) g/dL Hct (42.0-52.0) % MCV (80.0-105.0) fl MCH (25.0-35.0) pg MCHC (31.0-37.0) g/dl RDW (11.5-14.5) % Plt Count (120.0-450.0) 10^3/uL MPV (7.0-11.0) fl Gran % (50.0-68.0) % Lymph % (Auto) (22.0-35.0) % [place] % (Auto) (1.0-6.0) % Eos % (Auto) (1.5-5.0) % Baso % (Auto) (0.0-3.0) % Gran # (1.4-6.5) Lymph # (1.2-3.4) [place] # (0.1-0.6) Eos # (0.0-0.7) Baso # (0.0-2.0) K/mm3 PT 11.0 (9.9-11.8) Seconds INR 1.02 (0.93-1.08) APTT 24.7 (23.7-30.8) Seconds Sodium 138 (132-148) mmol/L Potassium 4.3 (3.6-5.0) mmol/L Chloride 105 (98-107) mmol/L Carbon Dioxide 26 (21-33) mmol/L Anion Gap 11 (10-20) BUN 18 (7-21) mg/dL Creatinine 1.2 (0.5-1.4) mg/dL Est GFR ( Amer) > 60 Est GFR (Non-Af Amer) 59 POC Glucose (mg/dL) 169 H (65-110) mg/dL Random Glucose 149 H (70-110) mg/dL Calcium 8.3 L (8.4-10.5) mg/dL Phosphorus 3.2 (2.5-4.5) mg/dL Magnesium 1.4 L (1.7-2.2) mg/dL Total Bilirubin 0.7 (0.2-1.3) mg/dL AST 20 (17-59) U/L ALT 31 (7-56) U/L Alkaline Phosphatase 36 L (38-126) U/L Lactate Dehydrogenase (333-699) U/L Total Creatine Kinase (35-230) U/L Troponin I ng/mL Total Protein 5.9 (5.8-8.3) g/dL Albumin 3.4 (3.0-4.8) g/dL Globulin 2.5 gm/dL Albumin/Globulin Ratio 1.4 (1.1-1.8) Blood Type Antibody Screen Crossmatch BBK History Checked 03/17/17 03/17/17 03/16/17 Range/Units 05:30 00:20 22:21 WBC 7.0 7.2 (4.5-11.0) 10^3/ul RBC 3.51 3.46 L (3.5-6.1) 10^6/uL Hgb 10.8 L 10.6 L (14.0-18.0) g/dL Hct 32.0 L 31.4 L (42.0-52.0) % MCV 91.2 90.8 (80.0-105.0) fl MCH 30.8 30.6 (25.0-35.0) pg MCHC 33.8 33.8 (31.0-37.0) g/dl RDW 13.3 13.3 (11.5-14.5) % Plt Count 118 L 122 (120.0-450.0) 10^3/uL MPV 12.0 H 11.8 H (7.0-11.0) fl Gran % 71.8 H 69.7 H (50.0-68.0) % Lymph % (Auto) 15.2 L 18.3 L (22.0-35.0) % [place] % (Auto) 10.4 H 8.9 H (1.0-6.0) % Eos % (Auto) 2.3 2.4 (1.5-5.0) % Baso % (Auto) 0.3 0.7 (0.0-3.0) % Gran # 5.04 4.99 (1.4-6.5) Lymph # 1.1 L 1.3 (1.2-3.4) [place] # 0.7 H 0.6 (0.1-0.6) Eos # 0.2 0.2 (0.0-0.7) Baso # 0.02 0.05 (0.0-2.0) K/mm3 PT (9.9-11.8) Seconds INR (0.93-1.08) APTT (23.7-30.8) Seconds Sodium (132-148) mmol/L Potassium (3.6-5.0) mmol/L Chloride (98-107) mmol/L Carbon Dioxide (21-33) mmol/L Anion Gap (10-20) BUN (7-21) mg/dL Creatinine (0.5-1.4) mg/dL Est GFR ( Amer) Est GFR (Non-Af Amer) POC Glucose (mg/dL) 189 H (65-110) mg/dL Random Glucose (70-110) mg/dL Calcium (8.4-10.5) mg/dL Phosphorus (2.5-4.5) mg/dL Magnesium (1.7-2.2) mg/dL Total Bilirubin (0.2-1.3) mg/dL AST (17-59) U/L ALT (7-56) U/L Alkaline Phosphatase (38-126) U/L Lactate Dehydrogenase (333-699) U/L Total Creatine Kinase (35-230) U/L Troponin I ng/mL Total Protein (5.8-8.3) g/dL Albumin (3.0-4.8) g/dL Globulin gm/dL Albumin/Globulin Ratio (1.1-1.8) Blood Type Antibody Screen Crossmatch BBK History Checked 03/16/17 03/16/17 03/16/17 Range/Units 20:30 16:37 14:30 WBC 8.8 9.4 (4.5-11.0) 10^3/ul RBC 3.57 3.67 (3.5-6.1) 10^6/uL Hgb 11.0 L 11.1 L (14.0-18.0) g/dL Hct 32.2 L 33.1 L (42.0-52.0) % MCV 90.2 90.2 (80.0-105.0) fl MCH 30.8 30.2 (25.0-35.0) pg MCHC 34.2 33.5 (31.0-37.0) g/dl RDW 13.1 13.2 (11.5-14.5) % Plt Count 117 L 112 L (120.0-450.0) 10^3/uL MPV 11.4 H 11.6 H (7.0-11.0) fl Gran % 81.6 H 84.7 H (50.0-68.0) % Lymph % (Auto) 12.0 L 7.7 L (22.0-35.0) % [place] % (Auto) 5.4 6.6 H (1.0-6.0) % Eos % (Auto) 0.8 L 0.7 L (1.5-5.0) % Baso % (Auto) 0.2 0.3 (0.0-3.0) % Gran # 7.14 H 7.93 H (1.4-6.5) Lymph # 1.1 L 0.7 L (1.2-3.4) [place] # 0.5 0.6 (0.1-0.6) Eos # 0.1 0.1 (0.0-0.7) Baso # 0.02 0.03 (0.0-2.0) K/mm3 PT (9.9-11.8) Seconds INR (0.93-1.08) APTT (23.7-30.8) Seconds Sodium (132-148) mmol/L Potassium (3.6-5.0) mmol/L Chloride (98-107) mmol/L Carbon Dioxide (21-33) mmol/L Anion Gap (10-20) BUN (7-21) mg/dL Creatinine (0.5-1.4) mg/dL Est GFR ( Amer) Est GFR (Non-Af Amer) POC Glucose (mg/dL) (65-110) mg/dL Random Glucose (70-110) mg/dL Calcium (8.4-10.5) mg/dL Phosphorus (2.5-4.5) mg/dL Magnesium (1.7-2.2) mg/dL Total Bilirubin (0.2-1.3) mg/dL AST (17-59) U/L ALT (7-56) U/L Alkaline Phosphatase (38-126) U/L Lactate Dehydrogenase (333-699) U/L Total Creatine Kinase (35-230) U/L Troponin I ng/mL Total Protein (5.8-8.3) g/dL Albumin (3.0-4.8) g/dL Globulin gm/dL Albumin/Globulin Ratio (1.1-1.8) Blood Type O NEGATIVE Antibody Screen Negative Crossmatch See Detail BBK History Checked Patient has bt 03/16/17 03/16/17 03/16/17 Range/Units 14:30 14:30 14:30 WBC 8.3 D (4.5-11.0) 10^3/ul RBC 3.86 (3.5-6.1) 10^6/uL Hgb 11.7 L D (14.0-18.0) g/dL Hct 35.0 L (42.0-52.0) % MCV 90.7 (80.0-105.0) fl MCH 30.3 (25.0-35.0) pg MCHC 33.4 (31.0-37.0) g/dl RDW 13.3 (11.5-14.5) % Plt Count 136 (120.0-450.0) 10^3/uL MPV 11.4 H (7.0-11.0) fl Gran % (50.0-68.0) % Lymph % (Auto) (22.0-35.0) % [place] % (Auto) (1.0-6.0) % Eos % (Auto) (1.5-5.0) % Baso % (Auto) (0.0-3.0) % Gran # (1.4-6.5) Lymph # (1.2-3.4) [place] # (0.1-0.6) Eos # (0.0-0.7) Baso # (0.0-2.0) K/mm3 PT 11.3 (9.9-11.8) Seconds INR 1.05 (0.93-1.08) APTT 23.4 L (23.7-30.8) Seconds Sodium (132-148) mmol/L Potassium (3.6-5.0) mmol/L Chloride (98-107) mmol/L Carbon Dioxide (21-33) mmol/L Anion Gap (10-20) BUN (7-21) mg/dL Creatinine (0.5-1.4) mg/dL Est GFR ( Amer) Est GFR (Non-Af Amer) POC Glucose (mg/dL) (65-110) mg/dL Random Glucose (70-110) mg/dL Calcium (8.4-10.5) mg/dL Phosphorus (2.5-4.5) mg/dL Magnesium (1.7-2.2) mg/dL Total Bilirubin (0.2-1.3) mg/dL AST (17-59) U/L ALT (7-56) U/L Alkaline Phosphatase (38-126) U/L Lactate Dehydrogenase 284 L (333-699) U/L Total Creatine Kinase 88 (35-230) U/L Troponin I < 0.01 ng/mL Total Protein (5.8-8.3) g/dL Albumin (3.0-4.8) g/dL Globulin gm/dL Albumin/Globulin Ratio (1.1-1.8) Blood Type Antibody Screen Crossmatch BBK History Checked 03/16/17 Range/Units 14:23 WBC (4.5-11.0) 10^3/ul RBC (3.5-6.1) 10^6/uL Hgb (14.0-18.0) g/dL Hct (42.0-52.0) % MCV (80.0-105.0) fl MCH (25.0-35.0) pg MCHC (31.0-37.0) g/dl RDW (11.5-14.5) % Plt Count (120.0-450.0) 10^3/uL MPV (7.0-11.0) fl Gran % (50.0-68.0) % Lymph % (Auto) (22.0-35.0) % [place] % (Auto) (1.0-6.0) % Eos % (Auto) (1.5-5.0) % Baso % (Auto) (0.0-3.0) % Gran # (1.4-6.5) Lymph # (1.2-3.4) [place] # (0.1-0.6) Eos # (0.0-0.7) Baso # (0.0-2.0) K/mm3 PT (9.9-11.8) Seconds INR (0.93-1.08) APTT (23.7-30.8) Seconds Sodium (132-148) mmol/L Potassium (3.6-5.0) mmol/L Chloride (98-107) mmol/L Carbon Dioxide (21-33) mmol/L Anion Gap (10-20) BUN (7-21) mg/dL Creatinine (0.5-1.4) mg/dL Est GFR ( Amer) Est GFR (Non-Af Amer) POC Glucose (mg/dL) 176 H (65-110) mg/dL Random Glucose (70-110) mg/dL Calcium (8.4-10.5) mg/dL Phosphorus (2.5-4.5) mg/dL Magnesium (1.7-2.2) mg/dL Total Bilirubin (0.2-1.3) mg/dL AST (17-59) U/L ALT (7-56) U/L Alkaline Phosphatase (38-126) U/L Lactate Dehydrogenase (333-699) U/L Total Creatine Kinase (35-230) U/L Troponin I ng/mL Total Protein (5.8-8.3) g/dL Albumin (3.0-4.8) g/dL Globulin gm/dL Albumin/Globulin Ratio (1.1-1.8) Blood Type Antibody Screen Crossmatch BBK History Checked Laboratory Results - last 24 hr 03/16/17 03/16/17 03/16/17 14:23 14:30 14:30 WBC 8.3 D RBC 3.86 Hgb 11.7 L D Hct 35.0 L MCV 90.7 MCH 30.3 MCHC 33.4 RDW 13.3 Plt Count 136 MPV 11.4 H Gran % Lymph % (Auto) [place] % (Auto) Eos % (Auto) Baso % (Auto) Gran # Lymph # [place] # Eos # Baso # PT INR APTT Sodium Potassium Chloride Carbon Dioxide Anion Gap BUN Creatinine Est GFR ( Amer) Est GFR (Non-Af Amer) POC Glucose (mg/dL) 176 H Random Glucose Calcium Phosphorus Magnesium Total Bilirubin AST ALT Alkaline Phosphatase Lactate Dehydrogenase 284 L Total Creatine Kinase 88 Troponin I < 0.01 Total Protein Albumin Globulin Albumin/Globulin Ratio Blood Type Antibody Screen Crossmatch BBK History Checked 03/16/17 03/16/17 03/16/17 14:30 14:30 16:37 WBC 9.4 RBC 3.67 Hgb 11.1 L Hct 33.1 L MCV 90.2 MCH 30.2 MCHC 33.5 RDW 13.2 Plt Count 112 L MPV 11.6 H Gran % 84.7 H Lymph % (Auto) 7.7 L [place] % (Auto) 6.6 H Eos % (Auto) 0.7 L Baso % (Auto) 0.3 Gran # 7.93 H Lymph # 0.7 L [place] # 0.6 Eos # 0.1 Baso # 0.03 PT 11.3 INR 1.05 APTT 23.4 L Sodium Potassium Chloride Carbon Dioxide Anion Gap BUN Creatinine Est GFR ( Amer) Est GFR (Non-Af Amer) POC Glucose (mg/dL) Random Glucose Calcium Phosphorus Magnesium Total Bilirubin AST ALT Alkaline Phosphatase Lactate Dehydrogenase Total Creatine Kinase Troponin I Total Protein Albumin Globulin Albumin/Globulin Ratio Blood Type O NEGATIVE Antibody Screen Negative Crossmatch See Detail BBK History Checked Patient has bt 03/16/17 03/16/17 03/17/17 20:30 22:21 00:20 WBC 8.8 7.2 RBC 3.57 3.46 L Hgb 11.0 L 10.6 L Hct 32.2 L 31.4 L MCV 90.2 90.8 MCH 30.8 30.6 MCHC 34.2 33.8 RDW 13.1 13.3 Plt Count 117 L 122 MPV 11.4 H 11.8 H Gran % 81.6 H 69.7 H Lymph % (Auto) 12.0 L 18.3 L [place] % (Auto) 5.4 8.9 H Eos % (Auto) 0.8 L 2.4 Baso % (Auto) 0.2 0.7 Gran # 7.14 H 4.99 Lymph # 1.1 L 1.3 [place] # 0.5 0.6 Eos # 0.1 0.2 Baso # 0.02 0.05 PT INR APTT Sodium Potassium Chloride Carbon Dioxide Anion Gap BUN Creatinine Est GFR ( Amer) Est GFR (Non-Af Amer) POC Glucose (mg/dL) 189 H Random Glucose Calcium Phosphorus Magnesium Total Bilirubin AST ALT Alkaline Phosphatase Lactate Dehydrogenase Total Creatine Kinase Troponin I Total Protein Albumin Globulin Albumin/Globulin Ratio Blood Type Antibody Screen Crossmatch BBK History Checked 03/17/17 03/17/17 03/17/17 05:30 05:30 05:30 WBC 7.0 RBC 3.51 Hgb 10.8 L Hct 32.0 L MCV 91.2 MCH 30.8 MCHC 33.8 RDW 13.3 Plt Count 118 L MPV 12.0 H Gran % 71.8 H Lymph % (Auto) 15.2 L [place] % (Auto) 10.4 H Eos % (Auto) 2.3 Baso % (Auto) 0.3 Gran # 5.04 Lymph # 1.1 L [place] # 0.7 H Eos # 0.2 Baso # 0.02 PT 11.0 INR 1.02 APTT 24.7 Sodium 138 Potassium 4.3 Chloride 105 Carbon Dioxide 26 Anion Gap 11 BUN 18 Creatinine 1.2 Est GFR ( Amer) > 60 Est GFR (Non-Af Amer) 59 POC Glucose (mg/dL) Random Glucose 149 H Calcium 8.3 L Phosphorus 3.2 Magnesium 1.4 L Total Bilirubin 0.7 AST 20 ALT 31 Alkaline Phosphatase 36 L Lactate Dehydrogenase Total Creatine Kinase Troponin I Total Protein 5.9 Albumin 3.4 Globulin 2.5 Albumin/Globulin Ratio 1.4 Blood Type Antibody Screen Crossmatch BBK History Checked 03/17/17 07:45 WBC RBC Hgb Hct MCV MCH MCHC RDW Plt Count MPV Gran % Lymph % (Auto) [place] % (Auto) Eos % (Auto) Baso % (Auto) Gran # Lymph # [place] # Eos # Baso # PT INR APTT Sodium Potassium Chloride Carbon Dioxide Anion Gap BUN Creatinine Est GFR ( Amer) Est GFR (Non-Af Amer) POC Glucose (mg/dL) 169 H Random Glucose Calcium Phosphorus Magnesium Total Bilirubin AST ALT Alkaline Phosphatase Lactate Dehydrogenase Total Creatine Kinase Troponin I Total Protein Albumin Globulin Albumin/Globulin Ratio Blood Type Antibody Screen Crossmatch BBK History Checked EKG/Cardiology Studies: Cardiology / EKG Studies 03/16/17 14:28 ELECTROCARDIOGRAM Stat Comment: Reason For Exam: acute bleed Fingerstick Blood Sugar Results: 169 Review of Systems - Review of Systems All systems: reviewed and no additional remarkable complaints except (as per subjective) Critical Care Progress Note - Nutrition Nutrition: Nutrition Category Date Time Status Consistent Carbohydrate [DIET] Diets 03/16/17 Lunch Ordered Assessment/Plan - Assessment and Plan (Free Text) Assessment: This is a 76 yo M with PMH of CAD s/p stenting x3, HTN, HLD, NIDDM, Gout, BPH, LLE Fem-pop bypass with SFA stent, and PVD with exercise-induced claudication who presents s/p Rapid Response with post-angiogram bleed. He is currently hemodynamically stable, without acute complaint, and will likely be transferred to telemetry pending stable Hgb on afternoon recheck of H&H. Plan: Neuro: -awake and alert, oriented x3, following all commands -maintain normothermia Pulm: -CTAB, satting well on 2L NC -maintain SaO2 > 92% Cardio: -currently hemodynamically stable, intermitttent drops to 90's systolic overnight, consistently 100's-110's this AM and at time of exam -no further hypotensive episodes to 80's systolic -Hypotensive episode likely 2/2 post-angiogram bleed, resolved -1/2 NS at 80cc/hr -Hgb overnight decreased from 11.7 to 10.6, 10.8 on AM recheck, continue to monitor CBCs q4 -Peripheral pulses intact, confirmed with duplex -Hold home ASA/Plaivx and Antihypertensives, can resume at a later time as determined by Primary and IR GI: -Consistent carb diet, tolerating well -Avoid Protonix ppx for now due to concern for bleed, can start on Protonix tomorrow if no bleeding from canulation site -CT abd/pelvis read as right retroperitoneal hemorrhage extending into R lower abdomen; as per IR, appears to be more anterior bleed, not acutely concerning but will require additional day of monitoring Renal: -Cr 1.2, BUN 18 -CT abd/pelvis read as concerning for possible ATN (likely contrast induced), however Cr remains unchanged and maintaining good urine output (1600cc overnight ). Continue to monitor -Maintain Euvolemia and Euglycemia (BG 140-180) -Mol[place] draining clear yellow urine, molina to be dc'ed -Avoid nephrotoxic drugs as feasible -Monitor and replete electrolytes as needed; Mag 1.4 today, repleted, f/u on AM labs Heme: -Coags obtained, INR 1.02 today -Avoid AC in setting of possible bleed -Hgb decreased from 11.7 post procedure to 10.8 this AM, not concerning for acute hemorrhage, continue to monitor; as per IR if repeat H&H at 1530 is stable , can be allowed to ambulate out of bed and be transferred to telemetry ID: -WBC 7.1, remains afebrile -no indication for antibiotics at this time Endo: -hold home oral hypoglycemics in favor of sliding scale, Fingersticks ACHS -Consistent carb diet Dispo: stable Hgb from post-procedure bleed, pending transfer to telemetry if 1530 H&H check stable FEN: Consistent carb, 1/2 NS 80cc/hr Access: Peripheral IV Consults: ICU Ppx: Avoid AC in setting of possible bleed, avoid SCD due to LE bleed, ambulation for DVT ppx when cleared for ambulation out of bed; avoid Protonix due to post-angiogram bleed Code Status: Full Patient seen, examined, and reviewed with attending, Dr. Haskins. <Juan José Haskins - Last Filed: 03/17/17 15:47> CCU Objective - Vital Signs / Intake & Output Vital Signs (Last 4 hours): Vital Signs Temp Pulse Resp BP Pulse Ox 03/17/17 15:20 74 14 96 03/17/17 15:10 72 96 03/17/17 15:00 70 22 137/62 96 03/17/17 14:50 73 32 H 95 09/27/17 14:40 71 25 H 95 03/17/17 14:30 72 16 95 03/17/17 14:20 71 17 95 03/17/17 14:10 72 25 H 94 L 03/17/17 14:00 72 15 121/64 94 L 03/17/17 13:50 71 17 94 L 03/17/17 13:40 72 27 H 95 03/17/17 13:30 72 12 94 L 03/17/17 13:20 67 17 94 L 03/17/17 13:10 66 22 95 03/17/17 13:00 68 27 H 136/61 95 03/17/17 12:50 67 16 94 L 03/17/17 12:40 68 15 94 L 03/17/17 12:30 73 95 03/17/17 12:20 67 18 95 03/17/17 12:10 63 23 94 L 03/17/17 12:00 98.8 F 63 18 112/48 L 93 L 03/17/17 11:50 65 20 93 L Intake and Output (Last 8hrs): Intake & Output 03/17/17 03/17/17 03/17/17 06:59 14:59 22:59 Intake Total 960 Output Total 1000 Balance -40 Intake: IV 960 Right Hand 960 Oral 0 Output: Urine 1000 Urethral ([place]) 1000 Other: # Bowel Movements 0 - Medications Active Medications: Active Medications Generic Name Dose Route Start Last Admin Trade Name Freq PRN Reason Stop Dose Admin Acetaminophen 650 mg 03/16/17 09:56 Tylenol 325mg Tab PO Q4H PRN Pain, Mild (1-3) Allopurinol 300 mg 03/16/17 17:30 03/17/17 09:12 Zyloprim PO 300 mg DAILY CAROLYN Administration Atorvastatin Calcium 10 mg 03/16/17 17:00 03/16/17 19:26 Lipitor PO 10 mg DIN CAROLYN Administration Finasteride 5 mg 03/16/17 17:30 03/17/17 09:16 Proscar PO 5 mg DAILY CAROLYN Administration Sodium Chloride 1,000 mls @ 80 mls/hr 03/16/17 10:00 03/16/17 22:40 Sodium Chloride 0.45% IV 80 mls/hr .[id number] CAROLYN Administration Insulin Human Lispro 0 units 03/16/17 22:00 03/17/17 12:18 Humalog Low SC 2 units ACHS CAROLYN Administration Protocol Ondansetron HCl 4 mg 03/16/17 09:55 Zofran Inj IVP ONCE PRN Nausea/Vomiting Oxycodone/Acetaminophen 1 tab 03/16/17 09:55 03/16/17 19:27 Percocet 5/325 Mg Tab PO 03/19/17 09:56 1 tab Q4H PRN Administration Pain, moderate (4-7) Tamsulosin HCl 0.4 mg 03/16/17 17:30 03/17/17 09:11 Flomax PO 0.4 mg DAILY CAROLYN Administration - Patient Studies Lab Studies: Lab Studies 03/17/17 03/17/17 03/17/17 Range/Units 11:15 09:52 07:45 WBC 7.1 (4.5-11.0) 10^3/ul RBC 3.44 L (3.5-6.1) 10^6/uL Hgb 10.5 L (14.0-18.0) g/dL Hct 31.2 L (42.0-52.0) % MCV 90.7 (80.0-105.0) fl MCH 30.5 (25.0-35.0) pg MCHC 33.7 (31.0-37.0) g/dl RDW 13.3 (11.5-14.5) % Plt Count 117 L (120.0-450.0) 10^3/uL MPV 12.0 H (7.0-11.0) fl Gran % 75.4 H (50.0-68.0) % Lymph % (Auto) 13.9 L (22.0-35.0) % [place] % (Auto) 7.6 H (1.0-6.0) % Eos % (Auto) 2.7 (1.5-5.0) % Baso % (Auto) 0.4 (0.0-3.0) % Gran # 5.33 (1.4-6.5) Lymph # 1.0 L (1.2-3.4) [place] # 0.5 (0.1-0.6) Eos # 0.2 (0.0-0.7) Baso # 0.03 (0.0-2.0) K/mm3 PT (9.9-11.8) Seconds INR (0.93-1.08) APTT (23.7-30.8) Seconds Sodium (132-148) mmol/L Potassium (3.6-5.0) mmol/L Chloride (98-107) mmol/L Carbon Dioxide (21-33) mmol/L Anion Gap (10-20) BUN (7-21) mg/dL Creatinine (0.5-1.4) mg/dL Est GFR ( Amer) Est GFR (Non-Af Amer) POC Glucose (mg/dL) 200 H 169 H (65-110) mg/dL Random Glucose (70-110) mg/dL Calcium (8.4-10.5) mg/dL Phosphorus (2.5-4.5) mg/dL Magnesium (1.7-2.2) mg/dL Total Bilirubin (0.2-1.3) mg/dL AST (17-59) U/L ALT (7-56) U/L Alkaline Phosphatase (38-126) U/L Total Protein (5.8-8.3) g/dL Albumin (3.0-4.8) g/dL Globulin gm/dL Albumin/Globulin Ratio (1.1-1.8) 03/17/17 03/17/17 03/17/17 Range/Units 05:30 05:30 05:30 WBC 7.0 (4.5-11.0) 10^3/ul RBC 3.51 (3.5-6.1) 10^6/uL Hgb 10.8 L (14.0-18.0) g/dL Hct 32.0 L (42.0-52.0) % MCV 91.2 (80.0-105.0) fl MCH 30.8 (25.0-35.0) pg MCHC 33.8 (31.0-37.0) g/dl RDW 13.3 (11.5-14.5) % Plt Count 118 L (120.0-450.0) 10^3/uL MPV 12.0 H (7.0-11.0) fl Gran % 71.8 H (50.0-68.0) % Lymph % (Auto) 15.2 L (22.0-35.0) % [place] % (Auto) 10.4 H (1.0-6.0) % Eos % (Auto) 2.3 (1.5-5.0) % Baso % (Auto) 0.3 (0.0-3.0) % Gran # 5.04 (1.4-6.5) Lymph # 1.1 L (1.2-3.4) [place] # 0.7 H (0.1-0.6) Eos # 0.2 (0.0-0.7) Baso # 0.02 (0.0-2.0) K/mm3 PT 11.0 (9.9-11.8) Seconds INR 1.02 (0.93-1.08) APTT 24.7 (23.7-30.8) Seconds Sodium 138 (132-148) mmol/L Potassium 4.3 (3.6-5.0) mmol/L Chloride 105 (98-107) mmol/L Carbon Dioxide 26 (21-33) mmol/L Anion Gap 11 (10-20) BUN 18 (7-21) mg/dL Creatinine 1.2 (0.5-1.4) mg/dL Est GFR ( Amer) > 60 Est GFR (Non-Af Amer) 59 POC Glucose (mg/dL) (65-110) mg/dL Random Glucose 149 H (70-110) mg/dL Calcium 8.3 L (8.4-10.5) mg/dL Phosphorus 3.2 (2.5-4.5) mg/dL Magnesium 1.4 L (1.7-2.2) mg/dL Total Bilirubin 0.7 (0.2-1.3) mg/dL AST 20 (17-59) U/L ALT 31 (7-56) U/L Alkaline Phosphatase 36 L (38-126) U/L Total Protein 5.9 (5.8-8.3) g/dL Albumin 3.4 (3.0-4.8) g/dL Globulin 2.5 gm/dL Albumin/Globulin Ratio 1.4 (1.1-1.8) 03/17/17 03/16/17 03/16/17 Range/Units 00:20 22:21 20:30 WBC 7.2 8.8 (4.5-11.0) 10^3/ul RBC 3.46 L 3.57 (3.5-6.1) 10^6/uL Hgb 10.6 L 11.0 L (14.0-18.0) g/dL Hct 31.4 L 32.2 L (42.0-52.0) % MCV 90.8 90.2 (80.0-105.0) fl MCH 30.6 30.8 (25.0-35.0) pg MCHC 33.8 34.2 (31.0-37.0) g/dl RDW 13.3 13.1 (11.5-14.5) % Plt Count 122 117 L (120.0-450.0) 10^3/uL MPV 11.8 H 11.4 H (7.0-11.0) fl Gran % 69.7 H 81.6 H (50.0-68.0) % Lymph % (Auto) 18.3 L 12.0 L (22.0-35.0) % [place] % (Auto) 8.9 H 5.4 (1.0-6.0) % Eos % (Auto) 2.4 0.8 L (1.5-5.0) % Baso % (Auto) 0.7 0.2 (0.0-3.0) % Gran # 4.99 7.14 H (1.4-6.5) Lymph # 1.3 1.1 L (1.2-3.4) [place] # 0.6 0.5 (0.1-0.6) Eos # 0.2 0.1 (0.0-0.7) Baso # 0.05 0.02 (0.0-2.0) K/mm3 PT (9.9-11.8) Seconds INR (0.93-1.08) APTT (23.7-30.8) Seconds Sodium (132-148) mmol/L Potassium (3.6-5.0) mmol/L Chloride (98-107) mmol/L Carbon Dioxide (21-33) mmol/L Anion Gap (10-20) BUN (7-21) mg/dL Creatinine (0.5-1.4) mg/dL Est GFR ( Amer) Est GFR (Non-Af Amer) POC Glucose (mg/dL) 189 H (65-110) mg/dL Random Glucose (70-110) mg/dL Calcium (8.4-10.5) mg/dL Phosphorus (2.5-4.5) mg/dL Magnesium (1.7-2.2) mg/dL Total Bilirubin (0.2-1.3) mg/dL AST (17-59) U/L ALT (7-56) U/L Alkaline Phosphatase (38-126) U/L Total Protein (5.8-8.3) g/dL Albumin (3.0-4.8) g/dL Globulin gm/dL Albumin/Globulin Ratio (1.1-1.8) 03/16/17 Range/Units 16:37 WBC 9.4 (4.5-11.0) 10^3/ul RBC 3.67 (3.5-6.1) 10^6/uL Hgb 11.1 L (14.0-18.0) g/dL Hct 33.1 L (42.0-52.0) % MCV 90.2 (80.0-105.0) fl MCH 30.2 (25.0-35.0) pg MCHC 33.5 (31.0-37.0) g/dl RDW 13.2 (11.5-14.5) % Plt Count 112 L (120.0-450.0) 10^3/uL MPV 11.6 H (7.0-11.0) fl Gran % 84.7 H (50.0-68.0) % Lymph % (Auto) 7.7 L (22.0-35.0) % [place] % (Auto) 6.6 H (1.0-6.0) % Eos % (Auto) 0.7 L (1.5-5.0) % Baso % (Auto) 0.3 (0.0-3.0) % Gran # 7.93 H (1.4-6.5) Lymph # 0.7 L (1.2-3.4) [place] # 0.6 (0.1-0.6) Eos # 0.1 (0.0-0.7) Baso # 0.03 (0.0-2.0) K/mm3 PT (9.9-11.8) Seconds INR (0.93-1.08) APTT (23.7-30.8) Seconds Sodium (132-148) mmol/L Potassium (3.6-5.0) mmol/L Chloride (98-107) mmol/L Carbon Dioxide (21-33) mmol/L Anion Gap (10-20) BUN (7-21) mg/dL Creatinine (0.5-1.4) mg/dL Est GFR ( Amer) Est GFR (Non-Af Amer) POC Glucose (mg/dL) (65-110) mg/dL Random Glucose (70-110) mg/dL Calcium (8.4-10.5) mg/dL Phosphorus (2.5-4.5) mg/dL Magnesium (1.7-2.2) mg/dL Total Bilirubin (0.2-1.3) mg/dL AST (17-59) U/L ALT (7-56) U/L Alkaline Phosphatase (38-126) U/L Total Protein (5.8-8.3) g/dL Albumin (3.0-4.8) g/dL Globulin gm/dL Albumin/Globulin Ratio (1.1-1.8) Laboratory Results - last 24 hr 03/16/17 03/16/17 03/16/17 16:37 20:30 22:21 WBC 9.4 8.8 RBC 3.67 3.57 Hgb 11.1 L 11.0 L Hct 33.1 L 32.2 L MCV 90.2 90.2 MCH 30.2 30.8 MCHC 33.5 34.2 RDW 13.2 13.1 Plt Count 112 L 117 L MPV 11.6 H 11.4 H Gran % 84.7 H 81.6 H Lymph % (Auto) 7.7 L 12.0 L [place] % (Auto) 6.6 H 5.4 Eos % (Auto) 0.7 L 0.8 L Baso % (Auto) 0.3 0.2 Gran # 7.93 H 7.14 H Lymph # 0.7 L 1.1 L [place] # 0.6 0.5 Eos # 0.1 0.1 Baso # 0.03 0.02 PT INR APTT Sodium Potassium Chloride Carbon Dioxide Anion Gap BUN Creatinine Est GFR ( Amer) Est GFR (Non-Af Amer) POC Glucose (mg/dL) 189 H Random Glucose Calcium Phosphorus Magnesium Total Bilirubin AST ALT Alkaline Phosphatase Total Protein Albumin Globulin Albumin/Globulin Ratio 03/17/17 03/17/17 03/17/17 00:20 05:30 05:30 WBC 7.2 7.0 RBC 3.46 L 3.51 Hgb 10.6 L 10.8 L Hct 31.4 L 32.0 L MCV 90.8 91.2 MCH 30.6 30.8 MCHC 33.8 33.8 RDW 13.3 13.3 Plt Count 122 118 L MPV 11.8 H 12.0 H Gran % 69.7 H 71.8 H Lymph % (Auto) 18.3 L 15.2 L [place] % (Auto) 8.9 H 10.4 H Eos % (Auto) 2.4 2.3 Baso % (Auto) 0.7 0.3 Gran # 4.99 5.04 Lymph # 1.3 1.1 L [place] # 0.6 0.7 H Eos # 0.2 0.2 Baso # 0.05 0.02 PT 11.0 INR 1.02 APTT 24.7 Sodium Potassium Chloride Carbon Dioxide Anion Gap BUN Creatinine Est GFR ( Amer) Est GFR (Non-Af Amer) POC Glucose (mg/dL) Random Glucose Calcium Phosphorus Magnesium Total Bilirubin AST ALT Alkaline Phosphatase Total Protein Albumin Globulin Albumin/Globulin Ratio 03/17/17 03/17/17 03/17/17 05:30 07:45 09:52 WBC 7.1 RBC 3.44 L Hgb 10.5 L Hct 31.2 L MCV 90.7 MCH 30.5 MCHC 33.7 RDW 13.3 Plt Count 117 L MPV 12.0 H Gran % 75.4 H Lymph % (Auto) 13.9 L [place] % (Auto) 7.6 H Eos % (Auto) 2.7 Baso % (Auto) 0.4 Gran # 5.33 Lymph # 1.0 L [place] # 0.5 Eos # 0.2 Baso # 0.03 PT INR APTT Sodium 138 Potassium 4.3 Chloride 105 Carbon Dioxide 26 Anion Gap 11 BUN 18 Creatinine 1.2 Est GFR ( Amer) > 60 Est GFR (Non-Af Amer) 59 POC Glucose (mg/dL) 169 H Random Glucose 149 H Calcium 8.3 L Phosphorus 3.2 Magnesium 1.4 L Total Bilirubin 0.7 AST 20 ALT 31 Alkaline Phosphatase 36 L Total Protein 5.9 Albumin 3.4 Globulin 2.5 Albumin/Globulin Ratio 1.4 03/17/17 11:15 WBC RBC Hgb Hct MCV MCH MCHC RDW Plt Count MPV Gran % Lymph % (Auto) [place] % (Auto) Eos % (Auto) Baso % (Auto) Gran # Lymph # [place] # Eos # Baso # PT INR APTT Sodium Potassium Chloride Carbon Dioxide Anion Gap BUN Creatinine Est GFR ( Amer) Est GFR (Non-Af Amer) POC Glucose (mg/dL) 200 H Random Glucose Calcium Phosphorus Magnesium Total Bilirubin AST ALT Alkaline Phosphatase Total Protein Albumin Globulin Albumin/Globulin Ratio Critical Care Progress Note - Nutrition Nutrition: Nutrition Category Date Time Status Consistent Carbohydrate [DIET] Diets 03/16/17 Lunch Ordered Attending/Attestation - Attestation I have personally seen and examined this patient.: Yes I have fully participated in the care of the patient.: Yes I have reviewed all pertinent clinical information: Yes Notes (Text): 03/17/17 15:45 76 yo with PVD, s/p stenting of SFA and retroperitoneal hematoma, hemodynamically and respiratory rivero stable. hb stable. ok to downgrade to Yuanfen~Flow™ ccm time 40 min
[2017-03-17 09:57] LABS: BASO # 0.03 K/mm3 (0.0-2.0); BASO % 0.4 % (0.0-3.0); EOS # 0.2 (0.0-0.7); EOS % 2.7 % (1.5-5.0); GRAN # 5.33 (1.4-6.5); GRAN % 75.4 % (50.0-68.0); HEMATOCRIT 31.2 % (42.0-52.0); LYMPH % 13.9 % (22.0-35.0); MEAN CELL VOLUME 90.7 fl (80.0-105.0); MEAN CORPUSCULAR HEMOGLOBIN 30.5 pg (25.0-35.0); MEAN CORPUSCULAR HGB CONC 33.7 g/dl (31.0-37.0); MONO # 0.5 (0.1-0.6); MONO % 7.6 % (1.0-6.0); RED CELL DISTRIBUTION WIDTH 13.3 % (11.5-14.5); WHITE BLOOD COUNT 7.1 10^3/ul (4.5-11.0)
--- NOTE | 2017-03-17 11:40 | CARD ---
APPROVED REPORT EKG Measurement Heart [id number] <Conclusion> Sinus rhythm with marked sinus arrhythmia Left anterior fascicular block Cannot rule out Inferior infarct (masked by fascicular block?), age undetermined Abnormal ECG
[2017-03-17 16:13] LABS: BASO # 0.03 K/mm3 (0.0-2.0); BASO % 0.5 % (0.0-3.0); EOS # 0.1 (0.0-0.7); EOS % 2.1 % (1.5-5.0); GRAN # 4.51 (1.4-6.5); GRAN % 72.1 % (50.0-68.0); HEMATOCRIT 30.9 % (42.0-52.0); LYMPH # 1.1 (1.2-3.4); MEAN CELL VOLUME 90.9 fl (80.0-105.0); MEAN CORPUSCULAR HEMOGLOBIN 30.6 pg (25.0-35.0); MEAN CORPUSCULAR HGB CONC 33.7 g/dl (31.0-37.0); MEAN PLATELET VOLUME 12.1 fl (7.0-11.0); MONO # 0.5 (0.1-0.6); MONO % 8.3 % (1.0-6.0); RED CELL DISTRIBUTION WIDTH 13.1 % (11.5-14.5); WHITE BLOOD COUNT 6.3 10^3/ul (4.5-11.0)
[2017-03-17] MEDS: Oxycodone/Acetaminophen 5/325 mg Tab PO PRN (16:55)
--- NOTE | 2017-03-17 17:23 | HP ---
ADMITTING HISTORY AND PHYSICAL CHIEF COMPLAINT: Right lower quadrant abdominal pain and drop in blood pressure after angiography. HISTORY OF PRESENT ILLNESS: This is a 76-year-old man I have known for several years with hypertension, diabetes, gout, and peripheral vascular disease. He has worsening claudication of the left lower extremity for several months and agreed to go for catheterization, angiogram, and possible stent placement after routine consultation with his interventional radiologist that he follows periodically. The procedure went uneventfully. Post-procedure, the patient experienced a drop in blood pressure with sudden onset of right lower quadrant abdominal pain. He was resuscitated with IV fluids. He maintained normal rhythm and maintained consciousness all through this episode,the blood pressure came up. There was no noticeable hematoma at the groin, but he was admitted to the ICU for overnight monitor and observation. PAST MEDICAL HISTORY: As mentioned above is significant for hypertension, diabetes, gout, peripheral vascular disease, and benign prostatic hypertrophy. He has a stent placed in his leg several years ago. CURRENT MEDICATIONS AT HOME: Include simvastatin, lisinopril, hydrochlorothiazide, glipizide, metformin, tamsulosin, finasteride, aspirin, Plavix, and Zyloprim. ALLERGIES: HE HAS NO KNOWN ALLERGIES. SOCIAL HISTORY: Does not smoke, although there is a history. Rarely drinks alcohol. He is with grown children. His daughter is a computerized axial tomographer here at [facility]. REVIEW OF SYSTEMS: Otherwise unremarkable. PHYSICAL EXAMINATION: GENERAL: The patient was seen this evening in ICU Coronary Care at bed 6. He is awake, alert, and comfortable. Reports some abdominal discomfort that he feels it is mostly from pressure applied after the procedure. He reports that it is however more in the abdomen than in the groin area. HEENT: Head and neck are unremarkable. Conjunctivae are pink. Mucous membranes are moist. NECK: Supple without masses. No JVD. No bruit. LUNGS: Clear, right and left. HEART: Regular, not tachycardic. ABDOMEN: Soft with normal bowel sounds and is obese with tenderness in the right lower quadrant. Dressing is in place on the right side. There is no obvious hematoma around the dressing or bleeding. EXTREMITIES: Showed no edema. Dorsalis pedis and posterior tibial pulses are weak and not easily palpable or present with Doppler. The toes are warm and color is good. IMPRESSION: 1. Sudden drop in blood pressure postprocedure with right lower quadrant abdominal pain. Of note, the patient had a vagal episode with diarrhea and diaphoresis some three days before that he claims to eating something that was spoiled; however, he denies yesterdays' symptoms were anything like that episode of three days ago. 2. Hypertension. 3. Diabetes. 4. Peripheral artery disease. 5. Benign prostatic hypertrophy. 6. Hyperlipidemia. 7. History of renal insufficiency. PLAN: The patient will be monitored overnight in the ICU, however, a CT scan of the abdomen for tomorrow morning because of my concerns bout the abdomen itself not just the groin area. This will be done without contrast as there is a history of renal insufficiency. Angelito Coto MD MTDD
[2017-03-17 19:52] VITALS: BMI 32.1
[2017-03-17 20:49] VITALS: O2SAT 99
[2017-03-17 21:54] LABS: BASO # 0.04 K/mm3 (0.0-2.0); BASO % 0.6 % (0.0-3.0); EOS # 0.2 (0.0-0.7); EOS % 2.8 % (1.5-5.0); GRAN # 4.22 (1.4-6.5); GRAN % 66.5 % (50.0-68.0); HEMATOCRIT 30.9 % (42.0-52.0); LYMPH # 1.3 (1.2-3.4); LYMPH % 21.1 % (22.0-35.0); MEAN CELL VOLUME 91.4 fl (80.0-105.0); MEAN CORPUSCULAR HEMOGLOBIN 30.5 pg (25.0-35.0); MEAN CORPUSCULAR HGB CONC 33.3 g/dl (31.0-37.0); MEAN PLATELET VOLUME 11.6 fl (7.0-11.0); MONO # 0.6 (0.1-0.6); RED CELL DISTRIBUTION WIDTH 13.1 % (11.5-14.5); WHITE BLOOD COUNT 6.4 10^3/ul (4.5-11.0)
[2017-03-17] MEDS: Sodium Chloride 0.45% 1,000 ML IV SCH (23:30)
[2017-03-18 02:15] LABS: BASO # 0.04 K/mm3 (0.0-2.0); BASO % 0.6 % (0.0-3.0); EOS # 0.2 (0.0-0.7); EOS % 2.5 % (1.5-5.0); GRAN # 4.5 (1.4-6.5); GRAN % 69.2 % (50.0-68.0); HEMATOCRIT 32.6 % (42.0-52.0); LYMPH # 1.1 (1.2-3.4); LYMPH % 17.5 % (22.0-35.0); MEAN CELL VOLUME 91.1 fl (80.0-105.0); MEAN PLATELET VOLUME 11.7 fl (7.0-11.0); MONO # 0.7 (0.1-0.6); MONO % 10.2 % (1.0-6.0); RED CELL DISTRIBUTION WIDTH 13.2 % (11.5-14.5); WHITE BLOOD COUNT 6.5 10^3/ul (4.5-11.0)
[2017-03-18 05:10] VITALS: TEMP 99.3
[2017-03-18 06:18] VITALS: BP 128/65; PULSE 70; RESP 16
--- NOTE | 2017-03-18 06:41 | CP.PCM.PN ---
Subjective - Date & Time of Evaluation Date of Evaluation: 03/18/17 Time of Evaluation: 06:40 - Subjective Subjective: S:Sleeping pill was requested. Has no other complaints. Medical record was reviewed. O:VSS. Not in distress. LUNGS:Normal breathing pattern. A:Adjustment insomnia. P:Benadryl 50 mg PO stat. Objective - Vital Signs/Intake and Output Vital Signs (last 24 hours): Temp Pulse Resp BP Pulse Ox 99.3 F 70 16 128/65 99 03/18/17 04:00 03/18/17 06:00 03/18/17 06:00 03/18/17 06:00 03/17/17 20:00 Intake and Output: 03/17/17 03/18/17 18:59 06:59 Intake Total 2090 1160 Output Total 1550 650 Balance 540 510 - Medications Medications: Current Medications Acetaminophen (Tylenol 325mg Tab) 650 mg PO Q4H PRN PRN Reason: Pain, Mild (1-3) Allopurinol (Zyloprim) 300 mg PO DAILY [facility] Last Admin: 03/17/17 09:12 Dose: 300 mg Atorvastatin Calcium (Lipitor) 10 mg PO DIN [facility] Last Admin: 03/17/17 16:56 Dose: 10 mg Finasteride (Proscar) 5 mg PO DAILY [facility] Last Admin: 03/17/17 09:16 Dose: 5 mg Sodium Chloride (Sodium Chloride 0.45%) 1,000 mls @ 80 mls/hr IV .[id number] [facility] Last Admin: 03/17/17 23:30 Dose: 80 mls/hr Insulin Human Lispro (Humalog Low) 0 units SC ACHS [facility] PRN Reason: Protocol Last Admin: 03/17/17 22:00 Dose: Not Given Ondansetron HCl (Zofran Inj) 4 mg IVP ONCE PRN PRN Reason: Nausea/Vomiting Oxycodone/Acetaminophen (Percocet 5/325 Mg Tab) 1 tab PO Q4H PRN PRN Reason: Pain, moderate (4-7) Stop: 03/19/17 09:56 Last Admin: 03/17/17 16:55 Dose: 1 tab Tamsulosin HCl (Flomax) 0.4 mg PO DAILY [facility] Last Admin: 03/17/17 09:11 Dose: 0.4 mg - Labs Labs: 03/18/17 01:30 03/17/17 05:30 PT 11.0 Seconds (9.9-11.8) 03/17/17 05:30 INR 1.02 (0.93-1.08) 03/17/17 05:30 APTT 24.7 Seconds (23.7-30.8) 03/17/17 05:30
[2017-03-18 06:42] LABS: BASO # 0.03 K/mm3 (0.0-2.0); BASO % 0.5 % (0.0-3.0); EOS # 0.2 (0.0-0.7); EOS % 2.6 % (1.5-5.0); GRAN # 4.68 (1.4-6.5); GRAN % 71.9 % (50.0-68.0); HEMATOCRIT 33.1 % (42.0-52.0); LYMPH % 15.8 % (22.0-35.0); MEAN CELL VOLUME 90.4 fl (80.0-105.0); MEAN CORPUSCULAR HEMOGLOBIN 30.3 pg (25.0-35.0); MEAN CORPUSCULAR HGB CONC 33.5 g/dl (31.0-37.0); MEAN PLATELET VOLUME 12.2 fl (7.0-11.0); MONO # 0.6 (0.1-0.6); MONO % 9.2 % (1.0-6.0); RED CELL DISTRIBUTION WIDTH 13.2 % (11.5-14.5); WHITE BLOOD COUNT 6.5 10^3/ul (4.5-11.0)
[2017-03-18] MEDS: Insulin Lispro (humaLOG) LOW Coverage SC SCH ×2 (08:24→12:24)
[2017-03-18 09:50] LABS: BASO # 0.03 K/mm3 (0.0-2.0); BASO % 0.5 % (0.0-3.0); EOS # 0.1 (0.0-0.7); EOS % 2.2 % (1.5-5.0); GRAN # 4.31 (1.4-6.5); GRAN % 74.6 % (50.0-68.0); HEMATOCRIT 30.3 % (42.0-52.0); LYMPH # 0.9 (1.2-3.4); LYMPH % 15.1 % (22.0-35.0); MEAN CELL VOLUME 91.3 fl (80.0-105.0); MEAN CORPUSCULAR HEMOGLOBIN 30.4 pg (25.0-35.0); MEAN CORPUSCULAR HGB CONC 33.3 g/dl (31.0-37.0); MEAN PLATELET VOLUME 11.8 fl (7.0-11.0); MONO # 0.4 (0.1-0.6); MONO % 7.6 % (1.0-6.0); RED CELL DISTRIBUTION WIDTH 13.1 % (11.5-14.5); WHITE BLOOD COUNT 5.8 10^3/ul (4.5-11.0)
[2017-03-18 13:45] LABS: BASO # 0.03 K/mm3 (0.0-2.0); BASO % 0.5 % (0.0-3.0); EOS # 0.2 (0.0-0.7); EOS % 2.5 % (1.5-5.0); GRAN # 4.17 (1.4-6.5); GRAN % 70.8 % (50.0-68.0); HEMATOCRIT 32.6 % (42.0-52.0); LYMPH % 17.7 % (22.0-35.0); MEAN CELL VOLUME 90.8 fl (80.0-105.0); MEAN CORPUSCULAR HEMOGLOBIN 30.9 pg (25.0-35.0); MEAN PLATELET VOLUME 12.2 fl (7.0-11.0); MONO # 0.5 (0.1-0.6); MONO % 8.5 % (1.0-6.0); RED CELL DISTRIBUTION WIDTH 13.1 % (11.5-14.5); WHITE BLOOD COUNT 5.9 10^3/ul (4.5-11.0)
== END 2017-03-18 17:10 | disposition home or self-care (01) | DRG 271 ==
LOC: SDSVAS 06:22 → CCU 15:09 → 5RNO 03-18 12:43
PROVIDERS: ADMIT Internal Medicine; ATTEND Internal Medicine
PROC: 04CL3ZZ Extirpation of Matter from Left Femoral Artery, Percutaneous Approach (ICD-10-PCS; principal; 2017-03-16)
PROC: 047L3Z1 Dilation of Left Femoral Artery using Drug-Coated Balloon, Percutaneous Approach (ICD-10-PCS; 2017-03-16)
DX: T82.858A Stenosis of other vascular prosthetic devices, implants and grafts, initial encounter (principal); I97.618 Postprocedural hemorrhage of a circulatory system organ or structure following other circulatory system procedure; I95.81 Postprocedural hypotension; E11.51 Type 2 diabetes mellitus with diabetic peripheral angiopathy without gangrene; E11.40 Type 2 diabetes mellitus with diabetic neuropathy, unspecified; I10 Essential (primary) hypertension; M10.9 Gout, unspecified; I25.10 Atherosclerotic heart disease of native coronary artery without angina pectoris; N40.0 Benign prostatic hyperplasia without lower urinary tract symptoms; E78.5 Hyperlipidemia, unspecified; N28.9 Disorder of kidney and ureter, unspecified; F51.02 Adjustment insomnia; E86.0 Dehydration; Z95.5 Presence of coronary angioplasty implant and graft; Z79.84 Long term (current) use of oral hypoglycemic drugs; Z87.891 Personal history of nicotine dependence; Y83.2 Surgical operation with anastomosis, bypass or graft as the cause of abnormal reaction of the patient, or of later complication, without mention of misadventure at the time of the procedure

== ENCOUNTER 2018-03-31 21:18 | Emergency (ER) | payer MEDICARE, BC ==
[2018-03-31 21:18] VITALS: BMI 32.1
[2018-03-31 23:34] VITALS: BP 121/64; PULSE 78; RESP 20; TEMP 98.9; O2SAT 97
--- NOTE | 2018-03-31 23:38 | ED PDOC ---
Addendum entered and electronically signed by Daren Barrett PA-C 04/02/18 10:11: Addendum Addendum: 04/02/18 10:[address] Saravia for foot is: no acute findings Original Note: Arrival/HPI - General Time Seen by Provider: 03/31/18 23:31 Historian: Patient - History of Present Illness Narrative History of Present Illness (Text): 03/31/18 23:32 77 y/o male, pmh including htn/hld/dm/PVD on the LLE/gout, c/o on lateral foot pain started today with no fall or trauma. Pt. stated that he woke up this morning with rt. lateral foot pain. Aching and throbbing, sensitive to touch, painful to walk and bear weight, no numbness or tingling, no calf pain, no night sweat, no dizziness, no change in vision, no calf or thigh pain, no rash, no other medical or psychological complaints. Past Medical History - Provider Review Nursing Documentation Reviewed: Yes - Infectious Disease Hx of Infectious Diseases: None - Cardiac Hx Hypertension: No - Pulmonary Hx Respiratory Disorders: No Hx Asthma: No Hx Bronchitis: No Hx Chronic Obstructive Pulmonary Disease (COPD): No Hx Emphysema: No Hx Pneumonia: No Hx Respiratory Aspiration: No Hx Respiratory Tract Infection: No Hx Sleep Apnea: No Hx Tuberculosis: No - Neurological Hx Alzheimer's Disease: No Hx Dementia: No Hx Dizziness: Yes Hx Meningitis: No Hx Migraine: No Hx Parkinson's Disease: No Hx Seizures: No Hx Transient Ischemic Attacks (TIA): No - HEENT Hx HEENT Disorder: No Hx Blind: No Hx Cataracts: No Hx Deafness: No Hx Difficulty Chewing: No Hx Epistaxis: No Hx Glaucoma: No Hx Macular Degeneration: No - Renal Hx Renal Disorder: No Hx Dialysis: No Hx Kidney Stones: No Hx Neurogenic Bladder: No Hx Pyelonephritis: No Hx Renal Cancer: No Hx Renal Failure: No - Endocrine/Metabolic Hx Endocrine Disorders: No Hx Adrenal Cancer: No Hx Diabetes Insipidus: No Hx Diabetes Mellitus Type 2: Yes Hx Hyperthyroidism: No Hx Hypothyroidism: No Hx Systemic Lupus Erythematosus: No - Hematological/Oncological Hx Blood Disorders: No Hx AIDS: No Hx Anemia: No Hx Cancer: No Hx Chemotherapy: No Hx Cirrhosis: No Hx Hemophilia: No Hx Hepatitis A: No Hx Hepatitis B: No Hx Hepatitis C: No Hx Metastasis: No Hx Shingles: No Hx Sickle Cell Disease: No Hx Unexplained Bleeding: No - Integumentary Hx Dermatological Disorder: No Hx Basal Cell Carcinoma: No Hx Eczema: No Hx Melanoma: No Hx Psoriasis: No Hx Squamous Cell Carcinoma: No - Musculoskeletal/Rheumatological Hx Musculoskeletal Disorders: No Hx Arthritis: No Hx Back Pain: No Hx Degenerative Joint Disease: No Hx Falls: Yes Hx Fractures: No Hx Gout: Yes Hx Herniated Disk: No Hx Myasthenia Gravis: No Hx Osteoarthritis: No Hx Osteomyelitis: No Hx Osteoporosis: No Hx Rhabdomyolysis: No Hx Spinal Stenosis: No Hx Unsteady Gait: No - Gastrointestinal Hx Gastrointestinal Disorders: No Hx Colostomy: No Hx Crohn's Disease: No Hx Diverticulitis: No Hx Gall Bladder Disease: No Hx Gastroesophageal Reflux: No Hx Gastrointestinal Ulcer: No Hx Ileostomy: No Hx Liver Failure: No Hx Pancreatitis: No HX Swallowing Problems: No - Genitourinary/Gynecological Hx Genitourinary Disorders: No Hx Hematuria: No Hx Incontinence: No Hx Prostate Problems: No Hx Sexually Transmitted Diseases: No Hx Urinary Tract Infection: No - Psychiatric Hx Psychophysiologic Disorder: No Hx Anxiety: No Hx Bipolar Disorder: No Hx Depression: No Hx Emotional Abuse: No Hx Hallucinations: No Hx Panic Disorder: No Hx Paranoia: No Hx Post Traumatic Stress Disorder: No Hx Psychosis: No Hx Physical Abuse: No Hx Schizophrenia: No Hx Sexual Abuse: No Hx Substance Use: No - Surgical History Hx Cardiac Catheterization: Yes - Anesthesia Hx Anesthesia Reactions: No - Suicidal Assessment Feels Threatened In Home Enviroment: No Family/Social History - Physician Review Nursing Documentation Reviewed: Yes Family/Social History: Unknown Family HX Smoking Status: Former Smoker Hx Alcohol Use: Yes Hx Substance Use: No Allergies/Home Meds Allergies/Adverse Reactions: Allergies No Known Allergies Allergy (Verified 03/31/18 23:35) Home Medications: Home Meds Medication Instructions Recorded Confirmed Clopidogrel [Plavix] 75 mg PO DAILY 05/24/12 03/31/18 Lisinopril/Hydrochlorothiazide 1 tab PO DAILY 06/06/14 03/31/18 [Lisinopril-Hctz 20-25 mg Tab] Finasteride [Proscar] 5 mg PO DAILY 02/08/15 03/31/18 Tamsulosin [Flomax] 0.4 mg PO DAILY 02/08/15 03/31/18 metFORMIN [glucOPHAGE] 500 mg PO BID 09/09/15 03/31/18 Allopurinol [Zyloprim] 300 mg PO DAILY 03/11/17 03/31/18 Glipizide [Glipizide ER] 5 mg PO DAILY 03/11/17 03/31/18 Simvastatin [Zocor] 20 mg PO DAILY 03/16/17 03/31/18 Review of Systems - Review of Systems Constitutional: absent: Fatigue, Fevers Eyes: absent: Vision Changes ENT: absent: Hearing Changes Respiratory: absent: SOB, Cough Cardiovascular: absent: Chest Pain Gastrointestinal: absent: Abdominal Pain, Diarrhea, Nausea, Vomiting Musculoskeletal: Arthralgias. absent: Back Pain, Neck Pain, Joint Swelling, Myalgias Skin: absent: Rash, Pruritis, Skin Lesions Neurological: absent: Headache, Dizziness Psychiatric: absent: Anxiety, Depression, Suicidal Ideation Physical Exam Pain Distress: Severe Mental Status: Positive for: Alert and Oriented X 3 - Systems Exam Head: Present: Atraumatic, Normocephalic Pupils: Present: PERRL Extroacular Muscles: Present: EOMI Conjunctiva: Present: Normal Mouth: Present: Moist Mucous Membranes Neck: Present: Normal Range of Motion Respiratory/Chest: Present: Clear to Auscultation, Good Air Exchange. No: Respiratory Distress, Accessory Muscle Use Cardiovascular: Present: Regular Rate and Rhythm, Normal S1, S2. No: Murmurs Abdomen: No: Tenderness, Distention, Peritoneal Signs Back: Present: Normal Inspection Upper Extremity: Present: Normal Inspection. No: Cyanosis, Edema Lower Extremity: Present: Normal Inspection, Other (RLE: +ttp on the rt. lateral foot region, no erythematous, no cold extremity or temperature difference, FROM without limitation, sensation intact, motor 5/5, +DPPT pulses, capillary refill< 2 seconds, neurovascular intact. ). No: Edema Neurological: Present: GCS=15, CN II-XII Intact, Speech Normal Skin: Present: Warm, Dry, Normal Color. No: Rashes Psychiatric: Present: Alert, Oriented x 3, Normal Insight, Normal Concentration Medical Decision Making ED Course and Treatment: 03/31/18 23:40 -RLE Venuous doppler -Rt. foot xray -Colchicine/percocet -Observe and reassess 04/01/18 00:50 -RLE Venuous doppler: as per preliminary report, no acute DVT -Rt. foot xray: ER wet read: no fracture or dislocation but spur noted on the lateral aspect of the foot metatarsal region. -Pt. feels much better but limited relief with colchicine (unlikely gout), sarina wrap applied, no pain at this time, has appointment to see Dr. Hauser this afternoon, request to be discharged home. -Discharge home with sarina wrap, cane, tylenol, weigh bearing as tolerated, follow up with your own pmd and small animal veterinarian Dr. Hauser this afternoon, return to the ER for any new or worsening signs or symptoms. - PA / PRE FABRICATOR / Resident Statement MD/DO has reviewed & agrees with the documentation as recorded. Disposition/Present on Arrival - Present on Arrival Any Indicators Present on Arrival: No History of DVT/PE: No History of Uncontrolled Diabetes: No Urinary Catheter: No History of Decub. Ulcer: No History Surgical Site Infection Following: None - Disposition Have Diagnosis and Disposition been Completed?: Yes Diagnosis: Bone spur of foot Disposition: HOME/ ROUTINE Disposition Time: 00:52 Patient Plan: Discharge Patient Problems: Current Active Problems Problem Status Onset Bone spur of foot Acute Condition: IMPROVED Additional Instructions: -Discharge home with sarina wrap, cane, tylenol, weigh bearing as tolerated, follow up with your own pmd and small animal veterinarian Dr. Hauser this afternoon, return to the ER for any new or worsening signs or symptoms. Prescriptions: Acetaminophen [Tylenol] 2 cap PO QID PRN #30 capsule PRN Reason: Other Referrals: Angelito Coto MD [Primary Care Provider] - Follow up with primary Reji Hauser DPM [Staff Provider] - Follow up with primary Forms: WORK NOTE
[2018-04-01] MEDS ORDERED: Oxycodone/Acetaminophen 5/325 mg Tab PO STA (00:38)
--- NOTE | 2018-04-01 09:20 | US ---
PROCEDURE: Right lower extremity venous US HISTORY: Leg pain and swelling. Evaluate for DVT. PHYSICIAN(S): Neptali Sibley M.D. TECHNIQUE: Duplex sonography and color-flow Doppler with graded compression were used to evaluate the deep venous system of the right lower extremity. FINDINGS: The visualized deep venous system of the right lower extremity is sonographically normal and compressible. Normal waveforms and augmentation are seen. There is no sonographic evidence for deep venous thrombosis in the visualized segments of the right lower extremity. IMPRESSION: 1. No sonographic evidence for deep venous thrombosis in the visualized segments of the right lower extremity.
--- NOTE | 2018-04-01 11:28 | RAD ---
Date of service: 04/01/2018 PROCEDURE: Right Foot Radiographs. HISTORY: rt. lateral foot pain x 1 day COMPARISON: None. FINDINGS: BONES: Normal. No fracture. JOINTS: Joint space narrowing in the 1st MTP joint SOFT TISSUES: Normal. OTHER FINDINGS: None. IMPRESSION: No acute findings
== END 2018-04-01 01:35 | disposition home or self-care (01) ==
LOC: ED 21:18
DX: M77.31 Calcaneal spur, right foot (principal); I10 Essential (primary) hypertension; M10.9 Gout, unspecified; Z87.891 Personal history of nicotine dependence